=== PATIENT | male | born 1975 | race Caucasian/White ===

== ENCOUNTER 2016-10-26 09:00 | Emergency (ER) | payer SELFPAY ==
[~2016-10-26] VITALS: Ht 175.3 cm; Wt 76.0 kg
[~2016-10-26 09:00] MED LIST: ACET500C5 PO
[2016-10-26 09:03] VITALS: Ht 175.3 cm; Wt 76.0 kg
[2016-10-26] MEDS ORDERED: KETOROLAC 30 MG INJ IV STA (10:05)
[2016-10-26 10:28] LABS: ADD SCAN DIFF NO
[2016-10-26 10:29] LABS: BASOPHILS % 0.6 % (0.0-2.0); EOSINOPHILS # 0.2 10^3/ul (0.0-0.5); EOSINOPHILS % 2.4 % (0.0-7.0); HEMATOCRIT 46.1 % (42.0-52.0); HEMOGLOBIN 16.4 g/dl (14.0-18.0); LYMPHOCYTES # 2.1 10^3/ul (0.8-2.9); LYMPHOCYTES % 30.2 % (15.0-51.0); MEAN CORPUSCULAR HEMOGLOBIN 31.5 pg (29.0-33.0); MEAN CORPUSCULAR HGB CONC 35.6 g/dl (32.0-37.0); MEAN CORPUSCULAR VOLUME 88.5 fl (82.0-101.0); MEAN PLATELET VOLUME 10.6 fl (7.4-10.4); MONOCYTE # 0.6 10^3/ul (0.3-0.9); MONOCYTES % 8.7 % (0.0-11.0); NEUTROPHIL # 3.9 10^3/ul (1.6-7.5); NEUTROPHILS % 57.7 % (39.0-77.0); PLATELET COUNT 264 10^3/UL (140-415); RED BLOOD COUNT 5.21 10^6/ul (4.70-6.10); RED CELL DISTRIBUTION WIDTH 12.3 % (11.5-14.5); WHITE BLOOD COUNT 6.8 10^3/ul (4.8-10.8)
[2016-10-26 10:38] LABS: ADD UMIC NO; URINE BILIRUBIN (Dip) NEGATIVE (NEGATIVE); URINE BLOOD (Dip) NEGATIVE (NEGATIVE); URINE COLOR LT. YELLOW (YELLOW); URINE GLUCOSE (Dip) NEGATIVE (NEGATIVE); URINE KETONES (Dip) NEGATIVE (NEGATIVE); URINE LEUKOCYTE ESTERASE (Dip) NEGATIVE (NEGATIVE); URINE NITRITE (Dip) NEGATIVE (NEGATIVE); URINE TOTAL PROTEIN (Dip) NEGATIVE (NEGATIVE); URINE UROBILINOGEN (Dip) 0.2 E.U./dL (0.1-1.0)
[2016-10-26 10:55] LABS: ALBUMIN 4.6 g/dl (3.3-4.9)
[2016-10-26 10:56] LABS: POTASSIUM 4.3 mmol/L (3.5-5.1)
[2016-10-26 10:58] LABS: ALBUMIN/GLOBULIN RATIO 1.27; BILIRUBIN,INDIRECT 0.5 mg/dl (0-1.1); BILIRUBIN,TOTAL 0.5 mg/dl (0.2-1.3); CREATININE 0.85 mg/dl (0.61-1.24); TOTAL PROTEIN 8.2 g/dl (6.1-8.1)
[2016-10-26 10:59] LABS: CALCIUM 9.4 mg/dl (8.4-10.2)
--- NOTE | 2016-10-26 11:20 | RADRPT ---
PROCEDURE: CT Abdomen and pelvis without contrast. CLINICAL INDICATION: Lower abdominal pain for 1 week TECHNIQUE: CT scan of the abdomen and pelvis with contrast was performed on a multidetector high-r esolution CT scan. . Coronal and sagittal reformatted images were obtained from the axial source i mages. Standard CT scan of the abdomen pelvis without contrast protocols were performed. The total exam CTDI equals 16.03 mGy and the total exam DLP equals 904.79 mGy-cm. One or more of the following dose reduction techniques were used: - Automated exposure control. - Adjustment of the mA and/or kV according to patient size. Use of iterative reconstruction technique. COMPARISON: None. FINDINGS: A right kidney is not visualized and there are no surgical clips along the right renal fossa. Agene sis versus surgical resection. The left kidney is normal in size without evidence of calcified sal l calculi hydronephrosis or intra renal mass. The left ureter is unremarkable. Urinary bladder is unremarkable. There are diverticular changes of the descending and sigmoid colon. There is mild to moderate wall thickening of the proximal sigmoid colon with mild adjacent induration and trace fluid consistent wi th diverticulitis. No evidence of other intra-abdominal free fluid. No evidence of intra-abdominal free air or abscess. The remainder of the colon is unremarkable. The stomach, small bowel and appendix are unremarkable. The liver spleen pancreas gallbladder and adrenal glands are unremarkable. No evidence of biliary d uctal dilation. The aorta is unremarkable. There is a fat containing left inguinal hernia but no herniated bowel or strangulation. There is a 0.7 cm calcified granuloma involving the left lower lobe. The lung base s are otherwise unremarkable. There is mild degenerative changes lower thoracic and lumbar spine. There are no acute osseous findings are osteoblastic/osteolytic lesions. IMPRESSION: 1. Diverticulitis of the proximal sigmoid colon as described above without evidence of intra-abdomi nal free air or abscesses. 2. Unremarkable appendix. 3. Absent right kidney (agenesis versus surgical resection). No evidence of left urinary calcified calculi or obstructive uropathy. 4. Fat containing left inguinal hernia but no herniated bowel or strangulation. RPTAT:AAJJ B Shane, Physician Date Time Electronically viewed and signed by Janina Lynn Physician on 10/26/2016 11:20 BM/
[2016-10-26] MEDS ORDERED: IBUP-1542 PO (11:33)
[2016-10-26] MEDS ORDERED: METR500T PO (11:34)
[2016-10-26] MEDS ORDERED: CIPR500T4 PO (11:34)
--- NOTE | 2016-10-26 11:40 | ERD ---
ER Documentation Chief Complaint Date/Time DATE: 10/26/16 TIME: 11:35 Chief Complaint LOWER ABD PAIN HPI Patient is a 41-year-old male who presents to the emergency department with lower abdominal pain 3 days. Patient states the pain originates in his bilateral flank regions and radiates into his lower abdomen. Patient describes the pain to be constant. Patient denies taking any medication for symptoms. Patient denies any fevers, chills, nausea, vomiting. Patient does report some pain with urination. Patient reports daily soft bowel movements. Patient denies any diarrhea or rectal bleeding. Patient denied any chest pain, shortness of breath, loss of consciousness.. Patient denies any recent travel or antibiotic use. No sick contacts. ROS All systems reviewed and are negative except as per history of present illness. Medications Home Meds Active Scripts Metronidazole* (Flagyl*) 500 Mg Tablet, 500 MG PO TID for 10 Days, TAB Prov:KARINE DENNY-Sunita 10/26/16 Ciprofloxacin Hcl* (Ciprofloxacin Hcl*) 500 Mg Tablet, 500 MG PO BID for 10 Days , TAB Prov:KARINE DENNY-Sunita 10/26/16 Ibuprofen* (Motrin*) 600 Mg Tab, 600 MG PO Q6, #30 TAB Prov:KARINE DENNY-Sunita 10/26/16 Acetaminophen* (Tylophen*) 500 Mg Capsule, 1 CAP PO Q6H Y for PAIN AND OR ELEVATED TEMP, #20 CAP Prov:WILFREDO FLETCHER [employer] TECHNICIAN 06/06/16 Allergies Allergies: Coded Allergies: No Known Allergy (Unverified , 10/26/16) PMhx/Soc Medical and Surgical Hx: pt denies Surgical Hx History of Surgery: No Anesthesia Reaction: No Hx Neurological Disorder: No Hx Respiratory Disorders: No Hx Cardiac Disorders: Yes (HTN) Hx Psychiatric Problems: No Hx Miscellaneous Medical Probl: No Hx Alcohol Use: No Hx Substance Use: No Hx Tobacco Use: No Smoking Status: Never smoker FmHx Family History: No diabetes Physical Exam Vitals Vital Signs Date Time Temp Pulse Resp B/P Pulse Ox O2 Delivery O2 Flow Rate FiO2 10/26/16 09:03 98.1 75 16 124/78 99 Physical Exam GENERAL: Well-developed, well-nourished male. Appears in no acute distress. HEAD: Normocephalic, atraumatic. EYES: Pupils are equally reactive bilaterally. EOMs grossly intact. No conjunctival erythema. ENT: Moist mucous membranes. No uvula deviation. No kissing tonsils. NECK: Supple. No meningismus. Normal range of motion of the neck. LUNG: Clear to auscultation bilaterally. No rhonchi, wheezing, rales or coarse breath sounds. HEART: Regular rate and rhythm. No murmurs, rubs or gallops. ABDOMEN: No scars, ecchymosis or rashes noted. Soft and nondistended. Tender to palpation in the right lower quadrant and left lower quadrant. Positive bowel sounds in all four quadrants. No rebound tenderness, no guarding. (-) McBurney's point tenderness. No CVA tenderness. BACK: No midline tenderness. EXTREMITIES: Equal pulses bilaterally. No peripheral clubbing, cyanosis or edema. No unilateral leg swelling. NEUROLOGIC: Alert and oriented. Moving all four extremities without any difficulty. Normal speech. Steady gait. SKIN: Normal color. Warm and dry. No rashes or lesions. Result Diagram: 10/26/16 1015 10/26/16 1015 Results 24 hrs Laboratory Tests Test 10/26/16 10:15 White Blood Count 6.810^3/ul Red Blood Count 5.2110^6/ul Hemoglobin 16.4g/dl Hematocrit 46.1% Mean Corpuscular Volume 88.5fl Mean Corpuscular Hemoglobin 31.5pg Mean Corpuscular Hemoglobin Concent 35.6g/dl Red Cell Distribution Width 12.3% Platelet Count 20237^3/UL Mean Platelet Volume 10.6fl Neutrophils % 57.7% Lymphocytes % 30.2% Monocytes % 8.7% Eosinophils % 2.4% Basophils % 0.6% Nucleated Red Blood Cells % 0.0/100WBC Neutrophils # 3.910^3/ul Lymphocytes # 2.110^3/ul Monocytes # 0.610^3/ul Eosinophils # 0.210^3/ul Basophils # 0.010^3/ul Nucleated Red Blood Cells # 0.010^3/ul Urine Color LT. YELLOW Urine Clarity CLEAR Urine pH 7.0 Urine Specific Carpenter <=1.005 Urine Ketones NEGATIVE Urine Nitrite NEGATIVE Urine Bilirubin NEGATIVE Urine Urobilinogen 0.2 E.U./dL Urine Leukocyte Esterase NEGATIVE Urine Hemoglobin NEGATIVE Urine Glucose NEGATIVE% Urine Total Protein NEGATIVE Sodium Level 142mmol/L Potassium Level 4.3mmol/L Chloride Level 101mmol/L Carbon Dioxide Level 28mmol/L Anion Gap 17 Blood Urea Nitrogen 11mg/dl Creatinine 0.85mg/dl Glucose Level 91mg/dl Calcium Level 9.4mg/dl Total Bilirubin 0.5mg/dl Direct Bilirubin 0.00mg/dl Indirect Bilirubin 0.5mg/dl Aspartate Amino Transf (AST/SGOT) 29IU/L Alanine Aminotransferase (ALT/SGPT) 36IU/L Alkaline Phosphatase 114IU/L Total Protein 8.2g/dl Albumin 4.6g/dl Globulin 3.60g/dl Albumin/Globulin Ratio 1.27 Lipase 596U/L Current Medications Medications (Trade) Dose Ordered Sig/Nato Route PRN Reason Start Time Stop Time Status Last Admin Dose Admin Ketorolac Tromethamine (Toradol) 30 mg ONCE STAT IV 10/26/16 10:05 10/26/16 10:06 DC 10/26/16 10:19 Procedures/MDM ED COURSE: The patient was stable throughout ED course. I kept the patient and/or family informed of laboratory and diagnostic imaging results throughout the ED course. DIAGNOSTIC IMAGING: Read by radiologist. Patient: SUKHJINDER DONOVAN : 1975 Age: 41 Sex: M MR #: [id number] DOS: 10/26/16 1005 Ordering MD: KARINE DENNY PA-C Location: [facility] Room/Bed: PROCEDURE: CT Abdomen and pelvis without contrast. CLINICAL INDICATION: Lower abdominal pain for 1 week TECHNIQUE: CT scan of the abdomen and pelvis with contrast was performed on a multidetector high-resolution CT scan. . Coronal and sagittal reformatted images were obtained from the axial source images. Standard CT scan of the abdomen pelvis without contrast protocols were performed. The total exam CTDI equals 16.03 mGy and the total exam DLP equals 904.79 mGy- cm. One or more of the following dose reduction techniques were used: - Automated exposure control. - Adjustment of the mA and/or kV according to patient size. Use of iterative reconstruction technique. COMPARISON: None. FINDINGS: A right kidney is not visualized and there are no surgical clips along the right renal fossa. Agenesis versus surgical resection. The left kidney is normal in size without evidence of calcified renal calculi hydronephrosis or intra renal mass. The left ureter is unremarkable. Urinary bladder is unremarkable. There are diverticular changes of the descending and sigmoid colon. There is mild to moderate wall thickening of the proximal sigmoid colon with mild adjacent induration and trace fluid consistent with diverticulitis. No evidence of other intra-abdominal free fluid. No evidence of intra-abdominal free air or abscess. The remainder of the colon is unremarkable. The stomach, small bowel and appendix are unremarkable. The liver spleen pancreas gallbladder and adrenal glands are unremarkable. No evidence of biliary ductal dilation. The aorta is unremarkable. There is a fat containing left inguinal hernia but no herniated bowel or strangulation. There is a 0.7 cm calcified granuloma involving the left lower lobe. The lung bases are otherwise unremarkable. There is mild degenerative changes lower thoracic and lumbar spine. There are no acute osseous findings are osteoblastic/osteolytic lesions. IMPRESSION: 1. Diverticulitis of the proximal sigmoid colon as described above without evidence of intra-abdominal free air or abscesses. 2. Unremarkable appendix. 3. Absent right kidney (agenesis versus surgical resection). No evidence of left urinary calcified calculi or obstructive uropathy. 4. Fat containing left inguinal hernia but no herniated bowel or strangulation. RPTAT:AAJJ Physician Brandi Date Time Electronically viewed and signed by Physician Brandi on 10/26/2016 11:20 BM/ CC: KARINE DENNY PA-C MEDICATIONS GIVEN: Toradol IV Patient tolerated medication well with no adverse reactions. Patient reported improvement in pain. MEDICAL DECISION MAKING: This is a 41-year-old male who presents to the emergency department with bilateral flank pain radiating into his right and lower quadrants 3 days. Vital signs were reviewed. Patient is afebrile. CBC showed no evidence of systemic infection or severe anemia. CMP showed no evidence of electrolyte abnormalities, severe acidosis, alkalosis, renal failure, or liver disease. Lipase was noted to be elevated at 596, however this is not 3 times the normal upper limit. Low suspicion for acute pancreatitis at this time. UA showed no evidence of acute infection or hematuria. CT abdomen pelvis without IV contrast showed Diverticulitis of the proximal sigmoid colon as described above without evidence of intra-abdominal free air or abscesses. Unremarkable appendix Absent right kidney (agenesis versus surgical resection). No evidence of left urinary calcified calculi or obstructive uropathy. Fat containing left inguinal hernia but no herniated bowel or strangulation. At this time, patient's presentation is most consistent with diverticulitis. I have a much lower clinical concern for acute coronary syndrome, AAA, mesenteric ischemia, lower lobe pneumonia, DKA, bowel perforation, bowel obstruction, cholecystitis, choledocholithiasis, ascending cholangitis, pancreatitis, UTI, pyelonephritis, nephrolithiasis, appendicitis, constipation, testicular torsion , epididymitis, urethritis. I discussed the patient's case with my supervising physician Dr. Adler who agrees with the patient's discharge plan. Patient is stable for outpatient management given that he has no white count or denied any fevers.. Patient will be treated with p.o. antibiotics. PRESCRIPTIONS: Ibuprofen, Cipro, Flagyl DISCHARGE: At this time, patient is stable for discharge and outpatient management. She provided with a copy of all imaging and blood work obtained today. I have instructed the patient to follow-up with his/her primary care physician in 1-2 days. Patient was advised to drink plenty of fluids. Patient was advised to follow-up with a GI specialist for further management of his symptoms. I have instructed the patient to promptly return to the ER at any time for any new or worsening symptoms including increased pain, nausea, vomiting, diarrhea, fever, weakness or LOC. The patient and/or family expressed understanding of and agreement with this plan. All questions were answered. Home care instructions were provided. Departure Diagnosis: Primary Impression: Diverticulitis Diverticulitis site: unspecified part of intestinal tract Diverticulitis bleeding: without bleeding Diverticulitis complication: without perforation or abscess Qualified Code: K57.92 - Diverticulitis of intestine without perforation or abscess without bleeding, unspecified part of intestinal tract Condition: Stable Patient Instructions: Diverticulitis Referrals: BRITT MONTES MD,NAYANA BENITEZ,CHAPARRITA MURILLO,SPRING FLANAGAN,CAITLYN Hayes MD [facility] YOU HAVE RECEIVED A MEDICAL SCREENING EXAM AND THE RESULTS INDICATE THAT YOU DO NOT HAVE A CONDITION THAT REQUIRES URGENT TREATMENT IN THE EMERGENCY DEPARTMENT. FURTHER EVALUATION AND TREATMENT OF YOUR CONDITION CAN WAIT UNTIL YOU ARE SEEN IN YOUR DOCTORS OFFICE WITHIN THE NEXT 1-2 DAYS. IT IS YOUR RESPONSIBILITY TO MAKE AN APPOINTMENT FOR FOLOW-UP CARE. IF YOU HAVE A PRIMARY DOCTOR --you should call your primary doctor and schedule an appointment IF YOU DO NOT HAVE A PRIMARY DOCTOR YOU CAN CALL OUR PHYSICIAN REFERRAL HOTLINE AT IF YOU CAN NOT AFFORD TO SEE A PHYSICIAN YOU CAN CHOSE FROM THE FOLLOWING [facility] [address] [facility] [address] [facility]. [facility] [address] [facility] [address] [facility] [address] [facility] [address] [facility] [facility] [address] [facility]. [facility] YOU HAVE RECEIVED A MEDICAL SCREENING EXAM AND THE RESULTS INDICATE THAT YOU DO NOT HAVE A CONDITION THAT REQUIRES URGENT TREATMENT IN THE EMERGENCY DEPARTMENT. FURTHER EVALUATION AND TREATMENT OF YOUR CONDITION CAN WAIT UNTIL YOU ARE SEEN IN YOUR DOCTORS OFFICE WITHIN THE NEXT 1-2 DAYS. IT IS YOUR RESPONSIBILITY TO MAKE AN APPOINTMENT FOR FOLOW-UP CARE. IF YOU HAVE A PRIMARY DOCTOR --you should call your primary doctor and schedule and appointment IF YOU DO NOT HAVE A PRIMARY DOCTOR YOU CAN CALL OUR PHYSICIAN REFERRAL HOTLINE AT . IF YOU CAN NOT AFFORD TO SEE A PHYSICIAN YOU CAN CHOSE FROM THE FOLLOWING [facility] INSTITUTIONS: [facility] [address] [place] [address] [facility] [address] [place] [address] [facility] [address] [place] [address] Additional Instructions: Call your primary care doctor TOMORROW for an appointment during the next 1-2 days.See the doctor sooner or return here if your condition worsens before your appointment time. See referral to GI for further management of symptoms. KARINE DENNY PA-C October 26, 2016 11:40
== END 2016-10-26 11:57 | disposition home or self-care (01) ==
LOC: FTE 09:00
DX: K57.92 Diverticulitis of intestine, part unspecified, without perforation or abscess without bleeding (principal); I10 Essential (primary) hypertension
CPT/HCPCS: 74176; 80053; 81003; 83690; 85025; J1885; 36415; 96374

== ENCOUNTER 2017-01-25 19:36 | Inpatient (IN) | payer MEDICAID ==
[~2017-01-25] VITALS: Ht 175.3 cm; Wt 83.5 kg
[~2017-01-25 19:36] MED LIST changes: +CIPR500T4 PO; +IBUP-1542 PO; +METR500T PO
[2017-01-25 23:41] LABS: INR 0.92; PROTIME 12.4 Sec (12.2-14.2)
[2017-01-25 23:44] LABS: ALANINE AMINOTRANSFERASE 27 IU/L (13-69); ALBUMIN 4.8 g/dl (3.3-4.9); ALBUMIN/GLOBULIN RATIO 1.33; ALKALINE PHOSPHATASE 115 IU/L (42-121); ANION GAP 20 (8-16); ASPARTATE AMINO TRANSFERASE 29 IU/L (15-46); BILIRUBIN,INDIRECT 0.3 mg/dl (0-1.1); BILIRUBIN,TOTAL 0.3 mg/dl (0.2-1.3); BLOOD UREA NITROGEN 15 mg/dl (7-20); CALCIUM 9.8 mg/dl (8.4-10.2); CARBON DIOXIDE 29 mmol/L (21-31); CHLORIDE 99 mmol/L (97-110); CREATININE 0.89 mg/dl (0.61-1.24); GLUCOSE 82 mg/dl (70-220); POTASSIUM 4.4 mmol/L (3.5-5.1); SODIUM 144 mmol/L (135-144); TOTAL PROTEIN 8.4 g/dl (6.1-8.1)
[2017-01-25 23:55] LABS: B-TYPE NATRIURETIC PEPTIDE 21 PG/ML (0-125)
[2017-01-25 23:55] LABS: BASOPHILS % 0.7 % (0.0-2.0); EOSINOPHILS # 0.1 10^3/ul (0.0-0.5); EOSINOPHILS % 2.3 % (0.0-7.0); HEMATOCRIT 43.2 % (42.0-52.0); HEMOGLOBIN 14.9 g/dl (14.0-18.0); LYMPHOCYTES # 2.2 10^3/ul (0.8-2.9); LYMPHOCYTES % 36.1 % (15.0-51.0); MEAN CORPUSCULAR HEMOGLOBIN 30.5 pg (29.0-33.0); MEAN CORPUSCULAR HGB CONC 34.5 g/dl (32.0-37.0); MEAN CORPUSCULAR VOLUME 88.5 fl (82.0-101.0); MEAN PLATELET VOLUME 10.4 fl (7.4-10.4); MONOCYTE # 0.7 10^3/ul (0.3-0.9); MONOCYTES % 12.4 % (0.0-11.0); NEUTROPHIL # 2.9 10^3/ul (1.6-7.5); NEUTROPHILS % 48.2 % (39.0-77.0); PLATELET COUNT 205 10^3/UL (140-415); RED BLOOD COUNT 4.88 10^6/ul (4.70-6.10); RED CELL DISTRIBUTION WIDTH 12.7 % (11.5-14.5)
[2017-01-26] VITALS (10 sets, daily range): BP systolic 98–143; BP diastolic 58–80; PULSE 40–68; RESP 18–19; TEMP 98.6; Ht 175.3 cm; Wt 83.5 kg
[2017-01-26 00:10] LABS: TROPONIN-I < 0.012 ng/ml (0.00-0.12)
--- NOTE | 2017-01-26 00:14 | RADRPT ---
PROCEDURE: Chest. CLINICAL INDICATION: Chest pain. TECHNIQUE: Single frontal view of the chest was obtained. COMPARISON: None. FINDINGS: The cardiac silhouette is within normal limits. The aortic arch is unremarkable. There is no focal consolidation, vascular congestion or pleural effusion. There is no pneumothorax. IMPRESSION: No evidence for active cardiopulmonary disease. .Dennis Gonzales MD, MD Date Time Electronically viewed and signed by .Dennis Gonzales MD, on 01/26/2017 00:13 .T/
[2017-01-26] MEDS ORDERED: NACL 0.9% 3 ML SYG IV SCH (05:30)
[2017-01-26] MEDS ORDERED: ONDANSETRON 4 MG INJ IV PRN (05:30)
[2017-01-26] MEDS ORDERED: morphine 2 MG INJ IV PRN (05:30)
[2017-01-26] MEDS ORDERED: ACETAMINOPHEN 325 MG TAB PO PRN (05:30)
[2017-01-26] MEDS ORDERED: PANTOPRAZOLE 40 MG INJ IV SCH (06:00)
[2017-01-26 06:30] LABS: CREATINE KINASE 66 IU/L (23-200)
[2017-01-26 06:40] LABS: CK-MB 1.29 ng/ml (0.0-2.4); TROPONIN-I < 0.012 ng/ml (0.00-0.12)
[2017-01-26 07:38] LABS: CHOL/HDL RATIO 5.5 RATIO; MAGNESIUM 2.4 mg/dl (1.7-2.5)
[2017-01-26 08:08] LABS: THYROID STIMULATING HORMONE 4.88 MIU/L (0.465-4.680)
[2017-01-26] MEDS ORDERED: LISINOPRIL 5 MG TAB PO ONE (09:30)
--- NOTE | 2017-01-26 09:32 | HP ---
Date/Time of Note Date/Time of Note DATE: 01/26/17 TIME: 09:32 Assessment/Plan VTE Prophylaxis VTE Prophylaxis Intervention: LMWH Lines/Catheters Urinary Cath still in place: No Assessment/Plan Assessment/Plan This is a 42-year-old male, who presented to the emergency room for evaluation of ongoing chest pain. 1. Chest pain, rule out acute coronary syndrome versus other -Admit as inpatient, serial troponin, serial EKG and 2D echocardiogram -Aspirin, nitroglycerin sublingual- PRN and morphine PRN -Obtain free T4 and TSH is mildly elevated 2. Asymptomatic bradycardia, possibly medication induced as patient states that he takes antihypertensive at home which he does not remember the name. -Patient will be abstain from any beta blockers are not blocking agents for now. -Cardiology consult. . 3. Essential hypertension, controlled -Start low-dose UCHE inhibitor as patient is not a candidate for beta-emile or AV bryanna blocking agents secondary to bradycardia as renal function stable. 4. Triglyceridemia, MILD within acceptable range., - for now, we will advise patient with therapeutic lifestyle changes to start with and repeat lipid panel in 4-6 weeks for indication of statin therapy at that time. DVT prophylaxis: Lovenox Plan: Patient will be observed in the telemetry unit. He will be started on a cardiac diet. Will continue to monitor serial troponin and follow-up with echocardiogram findings. Patient will be continued on aspirin and antihypertensive. Follow-up with cardiology recommendation. If ACS is ruled out, likely patient to be discharged home tomorrow once cleared from sediment remediation consultant. Approximately 60 minutes was spent on this history and physical. Case discussed with Dr. Salguero. HPI/ROS Admit Date/Time Admit Date/Time Jan 26, 2017 at 07:46 Hx of Present Illness This is a 42-year-old male with a past medical history of hypertension , who presented to the emergency room with complaints of 2 day duration of chest pain mostly left-sided without any radiation. Patient denied any SOB, PND , headache, dizziness, loss of consciousness, bowel or bladder irregularities, abdominal pain, nausea, vomiting, or neurological deficit. Patient denied any fever, chills, diarrhea, constipation, hemoptysis or cough. Initial labs unremarkable except for mildly elevated TSH and triglycerides. Troponin negative. Chest x-ray negative for any acute cardiopulmonary process. Patient was noted to have bradycardia at a rate of 44-59 upon presentation without any ST or T-wave changes. Patient was admitted for further evaluation. I cannot locate any record of medications that was given in the emergency room. Please note that [employer] service #[id number] was used for this H&P. ROS See HPI PMH/Family/Social Past Medical History See HPI Past Surgical History See HPI Social History Denied alcohol, smoking or illicit drug use history. Smoking Status: Never smoker Exam/Review of Systems Vital Signs Vitals Vital Signs Date Time Temp Pulse Resp B/P Pulse Ox O2 Delivery O2 Flow Rate FiO2 01/26/17 08:11 58 01/26/17 08:07 98.6 18 143/80 98 01/26/17 07:18 Room Air Exam Exam General: Well developed,adequately built, not in any acute distress . HEENT: Normocephalic, Atraumatic, No laceration or hematoma; Eyes: PEERL, Conjunctiva clear, Anicteric sclera Neck: Supple without any lymphadenopathy, nontender, no JVD, no carotid bruits, trachea midline, no thyromegaly Cardiac: S1, S2 auscultated, regular rhythm and rate, no mumurs or gallop Pulmonary: Normal respiratory effort. Chest clear to auscultation bilaterally, no adventitious breath sounds GI: Abdomen normal to inspection. Soft, non tender, non- distended, no masses, no rebound tenderness or guarding. Bowel sounds active on all four quadrants Genitourinary: Deferred Extremities: No cyanosis, clubbing, or edema. Pulses [2+] bilaterally. Full ROM on all four extremities. No focal weakness appreciated. Neurologic: Alert to person, place, time, and situation. Affect appropriate, intact sensation. Skin: Clean,dry, and intact. No ecchymosis, no rashes, or lesions Labs Result Diagram: 01/25/17 2330 01/25/17 4215 Medications Medications Current Medications Ondansetron HCl (Zofran Inj) 4 mg Q6H PRN IV NAUSEA AND/OR VOMITING; Start 01/26 at 05:30 Acetaminophen (Tylenol Tab) 650 mg Q6H PRN PO PAIN LEVEL 1-3 OR FEVER; Start at 05:30 Morphine Sulfate (morphine) 2 mg Q4H PRN IV PAIN LEVEL 7-10; Start 01/26/17 at 05:30 Pantoprazole (Protonix Iv) 40 mg DAILY@06 IV Last administered on 01/26/17t 06: 03; Admin Dose 40 MG; Start 01/26/17 at 06:00 Lisinopril (Zestril) 5 mg DAILY PO ; Start 01/27/17 at 09:00; Status UNV Lisinopril (Zestril) 5 mg ONCE ONCE PO ; Start 01/26/17 at 09:30; Stop 01/26/17 at 09:31; Status UNV PATRICIA ARCHIBALD V. SHINGLES ROOFER Jan 26, 2017 09:32
[2017-01-26] MEDS ORDERED: NITROGLYCERIN (SL) 0.4 MG TAB SL PRN (10:30)
--- NOTE | 2017-01-26 10:30 | RADRPT ---
Echocardiogram Report Patient Name: SUKHJINDER DONOVAN Gender: Male Date: 1975 Study Date: 26-Jan-2017 Clerical Assistant: Raya Cortés [facility] Location: 5552 Ref. Physician: DARREN FAY Quality: Good Procedures: Transthoracic echocardiogram with complete 2D, M-Mode, and doppler examination. Indications: Chest Pain. 2D/M Mode Doppler Measurement Value Normal Ranges Measurement Value Normal Ranges LVIDd 2D 4.3 3.5 - 5.6 cm AV Peak Lee 1.3 m/sec LVIDs 2D 2.9 2.1 - 4.1 cm AV Peak PG 6.5 mmHg LVPWd 2D 1.3 0.6 - 1.1 cm LVOT Peak Lee 0.9 m/sec IVSd 2D 1.4 0.6 - 1.1 cm LVOT Peak PG 3.3 mmHg AoR Diam 2D 2.9 2.0 - 3.7 cm MV E Peak Lee 0.6 m/sec EDV 2D 83.9 cm3 MV A Peak Lee 0.4 m/sec ESV 2D 25.3 cm3 MV E/A 1.5 LA Dimen 2D 3.8 2.3 - 4.0 cm MV Decel Time 367 msec MV Decel Randolph 2 MV E/A 1.5 TR Peak Lee 2.2 m/sec TR Peak PG 19.4 mmHg RVSP 29.0 mmHg Findings Left Ventricle: Normal left ventricular systolic function. Normal left ventricular cavity size. Mild concentric left ventricular hypertrophy. Ejection fraction is visually estimated at 65 %. Tissue Doppler/Mitral Doppler indices are within normal limits. Right Ventricle: Normal right ventricular size. Normal right ventricular systolic function. Left Atrium: The left atrium is normal in size. Right Atrium: The right atrium is normal in size. Mitral Valve: Normal appearance and function of the mitral valve with trace physiologic regurgitation. Aortic Valve: Normal appearance of the aortic valve. No significant aortic stenosis or insufficiency. Tricuspid Valve: Normal appearance of the tricuspid valve. Estimated peak PA systolic pressure 29 mmHg. There is trace tricuspid regurgitation. Pulmonic Valve: Normal pulmonic valve appearance. Pericardium: Normal pericardium with no significant pericardial effusion. Aorta: Normal aortic root. IVC: Normal size and normal respiratory collapse consistent with normal right atrial pressure. Conclusions 1.Normal left ventricular systolic function. Normal left ventricular cavity size. Mild concentric left ventricular hypertrophy. Ejection fraction is visually estimated at 65 %. Tissue Doppler/Mitral Doppler indices are within normal limits. 2.Normal appearance and function of the mitral valve with trace physiologic regurgitation. 3.Normal appearance of the aortic valve. No significant aortic stenosis or insufficiency. 4.Normal appearance of the tricuspid valve. Estimated peak PA systolic pressure 29 mmHg. There is trace tricuspid regurgitation. Electronically Signed By: Vaibhav Martinez 26-Jan-2017 10:29:58 -0700 Patient Name: SUKHJINDER DONOVAN Study Date: 26-Jan-2017 [id number]
[2017-01-26] MEDS: ASPIRIN 81 MG TAB PO SCH (11:30)
[2017-01-26 12:39] LABS: CREATINE KINASE 65 IU/L (23-200)
[2017-01-26 12:48] LABS: CK-MB 1.07 ng/ml (0.0-2.4); TROPONIN-I < 0.012 ng/ml (0.00-0.12)
--- NOTE | 2017-01-26 16:10 | CONS ---
Date/Time of Note Date/Time of Note DATE: 01/26/17 TIME: 16:09 Assessment/Plan Assessment/Plan Additional Assessment/Plan 42 yo with HTN - here with CP and palpitions - will monitor r/o SVT - inpt vs outpt stress test to consider. # [id number] Full note Dictated, Tnx Consultation Date/Type/Reason Admit Date/Time Jan 26, 2017 at 07:46 Initial Consult Date Exam/Review of Systems Vital Signs Vitals Vital Signs Date Time Temp Pulse Resp B/P Pulse Ox O2 Delivery O2 Flow Rate FiO2 01/26/17 12:14 68 01/26/17 11:25 98.6 18 115/77 96 01/26/17 07:18 Room Air Results Result Diagram: 01/25/17 2330 01/25/17 2245 Results 24 hrs Laboratory Tests Test 01/25/17 22:45 01/25/17 23:30 01/26/17 05:29 01/26/17 11:39 Prothrombin Time 12.4 Prothrombin Time Ratio 1.0 INR International Normalized Ratio 0.92 Activated Partial Thromboplast Time 20.0 L Sodium Level 144 Potassium Level 4.4 Chloride Level 99 Carbon Dioxide Level 29 Anion Gap 20 H Blood Urea Nitrogen 15 Creatinine 0.89 Glucose Level 82 Calcium Level 9.8 Total Bilirubin 0.3 Direct Bilirubin 0.00 Indirect Bilirubin 0.3 Aspartate Amino Transf (AST/SGOT) 29 Alanine Aminotransferase (ALT/SGPT) 27 Alkaline Phosphatase 115 Troponin I < 0.012 < 0.012 < 0.012 B-Type Natriuretic Peptide 21 Total Protein 8.4 H Albumin 4.8 Globulin 3.60 H Albumin/Globulin Ratio 1.33 White Blood Count 6.0 Red Blood Count 4.88 Hemoglobin 14.9 Hematocrit 43.2 Mean Corpuscular Volume 88.5 Mean Corpuscular Hemoglobin 30.5 Mean Corpuscular Hemoglobin Concent 34.5 Red Cell Distribution Width 12.7 Platelet Count 205 # Mean Platelet Volume 10.4 Neutrophils % 48.2 Lymphocytes % 36.1 Monocytes % 12.4 H Eosinophils % 2.3 Basophils % 0.7 Nucleated Red Blood Cells % 0.0 Neutrophils # 2.9 Lymphocytes # 2.2 Monocytes # 0.7 Eosinophils # 0.1 Basophils # 0.0 Nucleated Red Blood Cells # 0.0 Magnesium Level 2.4 Creatine Kinase 66 65 Creatine Kinase Index 2.0 1.6 Creatinine Kinase MB (Mass) 1.29 1.07 Triglycerides Level 179 H Cholesterol Level 189 LDL Cholesterol, Calculated 119 HDL Cholesterol 34 Cholesterol/HDL Ratio 5.5 Vitamin B12 Level 317 Vitamin D 1,25-Dihydroxy 31.0 Thyroid Stimulating Hormone (TSH) 4.880 H Free Thyroxine 1.41 Hemoglobin A1c 5.2 Medications Medications Current Medications Ondansetron HCl (Zofran Inj) 4 mg Q6H PRN IV NAUSEA AND/OR VOMITING; Start 01/26 at 05:30 Acetaminophen (Tylenol Tab) 650 mg Q6H PRN PO PAIN LEVEL 1-3 OR FEVER; Start at 05:30 Morphine Sulfate (morphine) 2 mg Q4H PRN IV PAIN LEVEL 7-10; Start 01/26/17 at 05:30 Lisinopril (Zestril) 5 mg DAILY PO ; Start 01/27/17 at 09:00 Aspirin (Aspirin) 81 mg DAILY PO ; Start 01/26/17 at 11:30 Nitroglycerin (Nitroglycerin (Sl Tab) 0.4 Mg) 1 tab Q5M PRN SL ANGINA; Start at 10:30 EDA BLACKMAN MD Jan 26, 2017 16:10
[2017-01-27] VITALS (13 sets, daily range): BP systolic 95–118; BP diastolic 57–76; PULSE 36–78; RESP 18–19
[2017-01-27 07:54] LABS: BASOPHILS % 0.5 % (0.0-2.0); EOSINOPHILS # 0.1 10^3/ul (0.0-0.5); EOSINOPHILS % 2.5 % (0.0-7.0); HEMATOCRIT 47.1 % (42.0-52.0); HEMOGLOBIN 16.6 g/dl (14.0-18.0); LYMPHOCYTES # 1.8 10^3/ul (0.8-2.9); LYMPHOCYTES % 32.2 % (15.0-51.0); MEAN CORPUSCULAR HEMOGLOBIN 31.4 pg (29.0-33.0); MEAN CORPUSCULAR HGB CONC 35.2 g/dl (32.0-37.0); MEAN PLATELET VOLUME 10.6 fl (7.4-10.4); MONOCYTE # 0.7 10^3/ul (0.3-0.9); MONOCYTES % 13.2 % (0.0-11.0); NEUTROPHIL # 2.9 10^3/ul (1.6-7.5); NEUTROPHILS % 51.4 % (39.0-77.0); PLATELET COUNT 215 10^3/UL (140-415); RED BLOOD COUNT 5.29 10^6/ul (4.70-6.10); RED CELL DISTRIBUTION WIDTH 12.5 % (11.5-14.5); WHITE BLOOD COUNT 5.6 10^3/ul (4.8-10.8)
[2017-01-27 08:20] LABS: ALBUMIN 4.4 g/dl (3.3-4.9); ALBUMIN/GLOBULIN RATIO 1.33; BILIRUBIN,INDIRECT 0.7 mg/dl (0-1.1); BILIRUBIN,TOTAL 0.7 mg/dl (0.2-1.3); CALCIUM 9.4 mg/dl (8.4-10.2); CREATININE 1.04 mg/dl (0.61-1.24); POTASSIUM 4.4 mmol/L (3.5-5.1); TOTAL PROTEIN 7.7 g/dl (6.1-8.1)
--- NOTE | 2017-01-27 09:39 | CONS ---
DATE OF ADMISSION: 01/26/2017 DATE OF CONSULTATION: 01/26/2017 CARDIOLOGY CONSULTATION REFERRING PHYSICIAN: Medardo Duckworth MD REASON FOR CONSULTATION: Chest pain, palpitations. HISTORY OF PRESENT ILLNESS: Mr. Kvng Espinosa is a 42- year-old gentleman with severe hypertension who comes to the hospital now for evaluation of palpitations and bradycardia. The patient said he had intermittent palpitations for the last 2 days but now his heart rate is better controlled. He is asymptomatic. He did not rule in for acute ischemia. I think at this point it would be reasonable to monitor the patient. He was initiated on an UCHE inhibitor per primary team. No beta blockers are noted. We will restratify the patient with a stress test and monitor for possible tachy-ang arrhythmia. PAST MEDICAL HISTORY: Hypertension. ALLERGIES: NO KNOWN DRUG ALLERGIES. SOCIAL HISTORY: Does not smoke. Does not drink. Does not do any illicit drugs. FAMILY HISTORY: Negative for sudden cardiac or premature coronary artery disease. MEDICATION: 1. Ondansetron. 2. Tylenol. 3. Morphine sulfate. 4. Pantoprazole. 5. Lisinopril 5 mg p.o. once a day. REVIEW OF SYSTEMS: CONSTITUTIONAL: No fevers, no chills, palpitations, weight changes. CARDIOVASCULAR: No chest pain reported now. RESPIRATORY: No shortness of breath. GASTROINTESTINAL: No nausea, vomiting. GENITOURINARY: No dysuria, hematuria. NEUROLOGIC: No focal deficits. HEMATOLOGIC: PSYCHIATRIC: No known history of psychiatric illness. PHYSICAL EXAMINATION: VITAL SIGNS: Temperature is 98.6, heart rate 68 now, blood pressure 116/77. GENERAL: A thin gentleman in no acute distress. Alert and oriented x3. HEENT: Head is normocephalic, atraumatic. intact. NECK: Supple. JVD is 6-7 cm. There is no lymphadenopathy. No cervical adenopathy. HEART: Regular. murmur at the apex. PMI is nondisplaced. There is no S3. ABDOMEN: Distended. Bowel sounds are present. There is no hepatosplenomegaly. EXTREMITIES: Without cyanosis, clubbing or edema. NEUROLOGIC: He is able to move his extremities. LABORATORY: White blood cell count is 6.0, hemoglobin is 11.9. His troponins are negative at 0.012. I was not able to get an EKG on the chart and we are going to try to followup with Cardiology ASSESSMENT AND PLAN: 1. Chest pain. The patient was reported to have chest pain, does not report any chest pain now. He has coronary artery disease, will restratify the patient with a stress test tomorrow if possible. 2. Hypertension. Blood pressure well controlled now. The patient appears to tolerate UCHE inhibitor well. 3. Palpitations. Will continue to monitor, to rule out tachy- ang arrhythmia. 4. Dyslipidemia. Will check fasting lipids and see if any treatment is indicated. I would like to thank Dr. Duckworth for referring this patient for my evaluation. Dictated By: Lamont Solis MD /rosalio/carol /Document#: [id number]
[2017-01-27] MEDS: LISINOPRIL 5 MG TAB PO SCH (09:54)
[2017-01-27] MEDS: ASPIRIN 81 MG TAB PO SCH (09:54)
--- NOTE | 2017-01-27 13:58 | PN ---
Date/Time of Note Date/Time of Note DATE: 01/27/17 TIME: 13:54 Assessment/Plan VTE Prophylaxis VTE Prophylaxis Intervention: LMWH Lines/Catheters [facility] Urinary Cath still in place: No Assessment/Plan Chief Complaint/Hosp Course 1. Chest pain, rule out acute coronary syndrome versus other. Serial troponin negative,EKG without ST/T changes. echo with preserved EF -For stress test today with cards team -Continue Aspirin, nitroglycerin sublingual- PRN and morphine PRN 2. Asymptomatic bradycardia, possibly medication induced as patient states that he takes antihypertensive at home which he does not remember the name. -Patient will be abstain from any beta blockers are not blocking agents for now. -Cardiology for further recs . 3. Essential hypertension, controlled -On UCHE inhibitor 4. Triglyceridemia, MILD within acceptable range., - Advised therapeutic lifestyle changes to start with and repeat lipid panel in 4-6 weeks for indication of statin therapy at that time. DVT prophylaxis: Lovenox Plan:F/u with stress chari nd [place] home once cleared from cards standpoint. Case discussed with Dr. Salguero. Problems: Subjective 24 Hr Interval Summary Free Text/Dictation No reported chest pain,palpitation or other distress. HR remains at 50's. Exam/Review of Systems Vital Signs Vitals Vital Signs Date Time Temp Pulse Resp B/P Pulse Ox O2 Delivery O2 Flow Rate FiO2 01/27/17 12:35 78 01/27/17 12:00 98.2 18 95/57 96 01/26/17 07:18 Room Air Intake and Output 01/26/17 01/26/17 01/27/17 15:00 23:00 07:00 Intake Total 960 ml 750 ml Output Total 2 ml Balance 958 ml 750 ml Exam General: Well developed,adequately built, not in any acute distress . HEENT: Normocephalic, Atraumatic, No laceration or hematoma; Eyes: PEERL, Conjunctiva clear, Anicteric sclera Neck: Supple without any lymphadenopathy, nontender, no JVD, no carotid bruits, trachea midline, no thyromegaly Cardiac: S1, S2 auscultated, regular rhythm and rate, no mumurs or gallop Pulmonary: Normal respiratory effort. Chest clear to auscultation bilaterally, no adventitious breath sounds GI: Abdomen normal to inspection. Soft, non tender, non- distended, no masses, no rebound tenderness or guarding. Bowel sounds active on all four quadrants Genitourinary: Deferred Extremities: No cyanosis, clubbing, or edema. Pulses [2+] bilaterally. Full ROM on all four extremities. No focal weakness appreciated. Neurologic: Alert to person, place, time, and situation. Affect appropriate, intact sensation. Skin: Clean,dry, and intact. No ecchymosis, no rashes, or lesions Results Result Diagram: 01/27/17 0734 01/27/17 0734 Results 24 hrs Laboratory Tests Test 01/27/17 07:34 White Blood Count 5.6 Red Blood Count 5.29 Hemoglobin 16.6 Hematocrit 47.1 Mean Corpuscular Volume 89.0 Mean Corpuscular Hemoglobin 31.4 Mean Corpuscular Hemoglobin Concent 35.2 Red Cell Distribution Width 12.5 Platelet Count 215 Mean Platelet Volume 10.6 H Neutrophils % 51.4 Lymphocytes % 32.2 Monocytes % 13.2 H Eosinophils % 2.5 Basophils % 0.5 Nucleated Red Blood Cells % 0.0 Neutrophils # 2.9 Lymphocytes # 1.8 Monocytes # 0.7 Eosinophils # 0.1 Basophils # 0.0 Nucleated Red Blood Cells # 0.0 Sodium Level 142 Potassium Level 4.4 Chloride Level 100 Carbon Dioxide Level 28 Anion Gap 18 H Blood Urea Nitrogen 20 Creatinine 1.04 Glucose Level 87 Calcium Level 9.4 Total Bilirubin 0.7 Direct Bilirubin 0.00 Indirect Bilirubin 0.7 Aspartate Amino Transf (AST/SGOT) 25 Alanine Aminotransferase (ALT/SGPT) 36 Alkaline Phosphatase 102 Total Protein 7.7 Albumin 4.4 Globulin 3.30 H Albumin/Globulin Ratio 1.33 Medications Medications Current Medications Ondansetron HCl (Zofran Inj) 4 mg Q6H PRN IV NAUSEA AND/OR VOMITING; Start 01/26 at 05:30 Acetaminophen (Tylenol Tab) 650 mg Q6H PRN PO PAIN LEVEL 1-3 OR FEVER; Start at 05:30 Morphine Sulfate (morphine) 2 mg Q4H PRN IV PAIN LEVEL 7-10 Last administered on 01/26/17 20:07; Admin Dose 2 MG; Start 01/26/17 at 05:30 Lisinopril (Zestril) 5 mg DAILY PO Last administered on 01/27/17 09:54; Admin Dose 5 MG; Start 01/27/17 at 09:00 Aspirin (Aspirin) 81 mg DAILY PO Last administered on 01/27/17 09:54; Admin Dose 81 MG; Start 01/26/17 at 11:30 Nitroglycerin (Nitroglycerin (Sl Tab) 0.4 Mg) 1 tab Q5M PRN SL ANGINA; Start at 10:30 PATRICIA ARCHIBALD NP Jan 27, 2017 13:58
[2017-01-27] MEDS ORDERED: REGADENOSON 0.4 MG/5 ML SYG ONE (14:00)
--- NOTE | 2017-01-27 14:24 | CONS ---
Date/Time of Note Date/Time of Note DATE: 01/27/17 TIME: 14:21 Assessment/Plan Assessment/Plan Chief Complaint/Hosp Course IMP: 1.Chest pain-negative trop x 3 2.HTN 3.Bradycardia to 50's mainly 4,.Dyslipidemia Recc: -Tele -continue asa -Continue zestril -Lexiscan stress test today Problems: Consultation Date/Type/Reason Admit Date/Time Jan 26, 2017 at 07:46 Initial Consult Date 01/26/2017 Type of Consultation: cardiology Reason for Consultation chest pain Referring Provider: MOSES FAGAN Exam/Review of Systems Vital Signs Vitals Vital Signs Date Time Temp Pulse Resp B/P Pulse Ox O2 Delivery O2 Flow Rate FiO2 01/27/17 12:35 78 01/27/17 12:00 98.2 18 95/57 96 01/26/17 07:18 Room Air Intake and Output 01/26/17 01/26/17 01/27/17 15:00 23:00 07:00 Intake Total 960 ml 750 ml Output Total 2 ml Balance 958 ml 750 ml Exam Review of Systems: CONSTITUTIONAL: No fevers, chills. PULMONARY: No sob CARDIOVASCULAR: No chest pain/palpitations GASTROINTESTINAL: No nausea/vomiting. GENITOURINARY: No hematuria/dysuria. MUSCULOSKELETAL: No myagias/arthalgias. PSYCHIATRIC: The patient denies depression. NEUROLOGIC: No weakness Constitutional: alert Psych: no complaints Head: normocephalic ENMT: mucosa pink and moist Neck: jvd (8-9 cm water), supple Respiratory: diminished breath sounds (at bases/B) Cardiovascular: regular rate and rhythm Gastrointestinal: non-tender, soft Musculoskeletal: muscle tone (normal) Extremities: edema (none) Results Result Diagram: 01/27/17 0734 01/27/17 0734 Results 24 hrs Laboratory Tests Test 01/27/17 07:34 White Blood Count 5.6 Red Blood Count 5.29 Hemoglobin 16.6 Hematocrit 47.1 Mean Corpuscular Volume 89.0 Mean Corpuscular Hemoglobin 31.4 Mean Corpuscular Hemoglobin Concent 35.2 Red Cell Distribution Width 12.5 Platelet Count 215 Mean Platelet Volume 10.6 H Neutrophils % 51.4 Lymphocytes % 32.2 Monocytes % 13.2 H Eosinophils % 2.5 Basophils % 0.5 Nucleated Red Blood Cells % 0.0 Neutrophils # 2.9 Lymphocytes # 1.8 Monocytes # 0.7 Eosinophils # 0.1 Basophils # 0.0 Nucleated Red Blood Cells # 0.0 Sodium Level 142 Potassium Level 4.4 Chloride Level 100 Carbon Dioxide Level 28 Anion Gap 18 H Blood Urea Nitrogen 20 Creatinine 1.04 Glucose Level 87 Calcium Level 9.4 Total Bilirubin 0.7 Direct Bilirubin 0.00 Indirect Bilirubin 0.7 Aspartate Amino Transf (AST/SGOT) 25 Alanine Aminotransferase (ALT/SGPT) 36 Alkaline Phosphatase 102 Total Protein 7.7 Albumin 4.4 Globulin 3.30 H Albumin/Globulin Ratio 1.33 Medications Medications Current Medications Ondansetron HCl (Zofran Inj) 4 mg Q6H PRN IV NAUSEA AND/OR VOMITING; Start 01/26 at 05:30 Acetaminophen (Tylenol Tab) 650 mg Q6H PRN PO PAIN LEVEL 1-3 OR FEVER; Start at 05:30 Morphine Sulfate (morphine) 2 mg Q4H PRN IV PAIN LEVEL 7-10 Last administered on 01/26/17 20:07; Admin Dose 2 MG; Start 01/26/17 at 05:30 Lisinopril (Zestril) 5 mg DAILY PO Last administered on 01/27/17 09:54; Admin Dose 5 MG; Start 01/27/17 at 09:00 Aspirin (Aspirin) 81 mg DAILY PO Last administered on 01/27/17 09:54; Admin Dose 81 MG; Start 01/26/17 at 11:30 Nitroglycerin (Nitroglycerin (Sl Tab) 0.4 Mg) 1 tab Q5M PRN SL ANGINA; Start at 10:30 GILLIAN MOSQUERA Jan 27, 2017 14:24
--- NOTE | 2017-01-27 16:19 | RADRPT ---
PROCEDURE: Lexiscan myocardial perfusion study CLINICAL INDICATION: 42 -year-old patient complaining of chest pain. TECHNIQUE: Lexiscan 0.4 mg intravenously separate acquisition gated myocardial perfusion SPECT usi ng Tc 99m Myoview 30.8 mCi intravenously at stress and Tc-99m Myoview, 10.1 mCi intravenously at res t was performed using the rest/stress sequence. Poststress Myoview SPECT images were obtained in th e supine position. COMPARISON: No prior studies. FINDINGS: Perfusion images reveal a small to moderate size mild to moderate in degree nonreversible perfusion abnormality in the inferior wall. There is no evidence of stress-induced ischemia. Lexiscan post stress gated SPECT images demonstrate no wall motion abnormalities. IMPRESSION: 1. The type and distribution of the scintigraphic abnormalities are most consistent with a small to moderate-sized nonreversible perfusion defect involving the inferior wall. 2. No wall motion abnormalities. 3. The left ventricle ejection fraction at stress is 60%. A call report was made to Dr. Hawkins at 04:11 p.m. on January 27, 2017. RPTAT: HH .Marti Ashton MD, Date Time Electronically viewed and signed by .Marti Ashton MD, MD on 01/27/2017 16:18 .L/
--- NOTE | 2017-01-27 20:51 | CARRPT ---
DATE OF PROCEDURE: 01/27/2017 PROCEDURE PERFORMED: Lexiscan Cardiolite stress test. REASON FOR STRESS TEST: Assess for ischemia. BASELINE VITAL SIGNS: Pulse 60, blood pressure of 111/71. ELECTROCARDIOGRAM: Electrocardiogram was normal sinus rhythm, rate of 60, normal axis, normal intervals, S wave, and flat in lead aVL. PROCEDURE: The patient had a standard Lexiscan, infusion for 10 seconds followed by radiotracer. Patient's test was stopped after completion of protocol. Maximal blood pressure test 104/57, maximum heart rate during the test 92. ECG CHANGES: ECG did not develop any new Lexiscan induced ST or T changes from baseline. No documented PVCs. SYMPTOMS: Patient had no complaints of chest pain or shortness of breath during stress testing. IMPRESSION: 1. No Lexiscan induced ST or T changes from baseline to diagnose for cardiac ischemia. 2. No complaints of chest pain or shortness of breath during stress testing. 3. No documented premature ventricular contractions (PVCs) during stress testing. 4. Nuclear images to follow. Dictated By: Ramya Carr /fnt/ /Document#: [id number] ; Dr. Curiel, Hospitalist Service
[2017-01-27] MEDS: GUAIFENESIN LA 600 MG TABSR PO SCH (22:19)
[2017-01-28] VITALS (7 sets, daily range): BP systolic 107–139; BP diastolic 59–76; PULSE 44–58; RESP 19
[2017-01-28] MEDS: ASPIRIN 81 MG TAB PO SCH (08:58)
[2017-01-28] MEDS: LISINOPRIL 5 MG TAB PO SCH (08:58)
[2017-01-28] MEDS: GUAIFENESIN LA 600 MG TABSR PO SCH (08:58)
--- NOTE | 2017-01-28 10:48 | PDOCDIS ---
Discharge Instructions CONDITION Patient Condition: Stable HOME CARE INSTRUCTIONS: Special Diet: Cardiac diet FOLLOW UP/APPOINTMENTS Follow-up Plan 1.Follow up with primary care physician in 1 week If you don't have one please let someone know, we can give you resources that may help you pick one. You may also call your insurance company to assign one to you. Review your medication list with your nurse before leaving and if you need new prescriptions please let your nurse know. I may have made changes to your home medications or given you new prescriptions, please let your primary doctor know as well. Stay compliant with your medications and report any side effects to your PCP or pharmacist. Return to the ER if you have any concerns and cannot reach your doctors or call your insurance company, they usually have a nurse that can help you. 2. Call 911 or go to the nearest emergency room if experiencing loss of consciousness, dizziness, chest pain, shortness of breath, vomiting/abdominal pain, speech difficulties, motor weakness or any unusual symptoms. PATRICIA ARCHIBALD NP Jan 28, 2017 10:48
[2017-01-28] MEDS ORDERED: LISI-313 PO (10:49)
--- NOTE | 2017-01-28 11:00 | DS ---
Date/Time of Note Date/Time of Note DATE: 01/28/17 TIME: 10:57 Discharge Summary Admission/Discharge Info Admit Date/Time Jan 26, 2017 at 07:46 Discharge Date/Time Discharge Diagnosis 1.Chest pain, likely musculoskeletal. Resolved. ACS ruled out 2.HTN 3. Asymptomatic bradycardia. Stable. 4. Mild triglyceridemia. Needs repeat labs in 4 weeks. Patient Condition: Stable Consults Dr. Hawkins, cardiology Procedures 01/26/2017. 2D echocardiogram Conclusions 1. Normal left ventricular systolic function. Normal left ventricular cavity size. Mild concentric left ventricular hypertrophy. Ejection fraction is visually estimated at 65 %. Tissue Doppler/Mitral Doppler indices are within normal limits. 2. Normal appearance and function of the mitral valve with trace physiologic regurgitation. 3. Normal appearance of the aortic valve. No significant aortic stenosis or insufficiency. 4. Normal appearance of the tricuspid valve. Estimated peak PA systolic pressure 29 mmHg. There is trace tricuspid regurgitation. 01/27/2017. Lexiscan stress test IMPRESSION: 1. No Lexiscan induced ST or T changes from baseline to diagnose for cardiac ischemia. 2. No complaints of chest pain or shortness of breath during stress testing. 3. No documented premature ventricular contractions (PVCs) during stress testing. Hospital Course This is a 42-year-old male with a past medical history of hypertension , who presented to the emergency room for evaluation of chest pain associated with palpitation for a 2 day duration. Patient did not have any other constitutional symptoms. Initial troponin was negative in the emergency room EKG was negative for any acute ST or T-wave changes. Initial labs and vital signs were within acceptable range. Patient was admitted to telemetry. Patient had serial troponin negative with serial EKGs negative for any acute ischemic changes. As patient was not able to provide the name of the antihypertensive he takes at home, he was started on UCHE inhibitor due to bradycardia and beta-blockers and AV bryanna agents were not first-line choice due to bradycardia. Patient was evaluated by cardiology and recommended continuation of low-dose lisinopril. Patient had Lexiscan stress test with no stress-induced ischemia identified. There is no further cardiac workup indicated at this time. Patient is able to tolerate diet and activities well. He did not have any further chest pain. Patient is medically stable for discharge. Etiology of chest pain is likely musculoskeletal and was resolved. During the course of hospitalization, patient was also checked for A1c and was within acceptable range. Patient was noted to have mild triglyceridemia with accepted LDL level. He was instructed on therapeutic lifestyle changes and repeat lipid panel in 4 weeks to reassess for statin therapy. Disposition: Patient will be discharged home today. He was given prescription for lisinopril and was repeatedly advised on not to take any other antihypertensives while taking UCHE inhibitors. He was also instructed to follow -up with primary care pain 1-2 weeks to repeat blood pressure. Patient was also instructed to have primary care check renal function in 4-6 weeks as UCHE inhibitors can affect renal function. Patient verbalized discharge instructions. Please note that crop grain or livestock farmer was used while communicating with this gentleman. Approximately 60 minutes was spent in coordinating the discharge on this patient. Case discussed with Dr. Salguero [place] Meds Active Scripts Lisinopril* (Lisinopril*) 5 Mg Tablet, 5 MG PO DAILY, #30 TAB Prov:PATRICIA ARCHIBALD V. [employer]OL GRADER 01/28/17 Ibuprofen* (Motrin*) 600 Mg Tab, 600 MG PO Q6, #30 TAB Prov:KARINE DENNY PA-C 10/26/16 Acetaminophen* (Tylophen*) 500 Mg Capsule, 1 CAP PO Q6H Y for PAIN AND OR ELEVATED TEMP, #20 CAP Prov:WILFREDO FLETCHER [employer] GR[employer]ER 06/06/16 Discontinued Scripts Metronidazole* (Flagyl*) 500 Mg Tablet, 500 MG PO TID for 10 Days, TAB Prov:KARINE DENNY PA-C 10/26/16 Ciprofloxacin Hcl* (Ciprofloxacin Hcl*) 500 Mg Tablet, 500 MG PO BID for 10 Days , TAB Prov:KARINE DENNY PA-C 10/26/16 Follow-up Plan HOME CARE INSTRUCTIONS: Special Diet: Cardiac diet FOLLOW UP/APPOINTMENTS Follow-up Plan 1.Follow up with primary care physician in 1 week If you don't have one please let someone know, we can give you resources that may help you pick one. You may also call your insurance company to assign one to you. Review your medication list with your nurse before leaving and if you need new prescriptions please let your nurse know. I may have made changes to your home medications or given you new prescriptions, please let your primary doctor know as well. Stay compliant with your medications and report any side effects to your PCP or pharmacist. Return to the ER if you have any concerns and cannot reach your doctors or call your insurance company, they usually have a nurse that can help you. 2. Call 911 or go to the nearest emergency room if experiencing loss of consciousness, dizziness, chest pain, shortness of breath, vomiting/abdominal pain, speech difficulties, motor weakness or any unusual symptoms. Primary Care Provider Care Physician PATRICIA Hargrove NP Jan 28, 2017 11:00
--- NOTE | 2017-01-28 12:38 | CONS ---
Date/Time of Note Date/Time of Note DATE: 01/28/17 TIME: 12:35 Assessment/Plan Assessment/Plan Chief Complaint/Hosp Course IMP: 1.Chest pain-negative trop x 3. NO ischemia by stress only scar with NL EF 2.HTN 3.Bradycardia to 50's mainly-mildly increase TSH and NL T4 4,.Dyslipidemia Recc: -Tele -continue asa -Continue zestril Problems: Consultation Date/Type/Reason Admit Date/Time Jan 26, 2017 at 07:46 Initial Consult Date 01/26/2017 Type of Consultation: cardiology Reason for Consultation bradycardia Referring Provider: MOSES FAGAN Exam/Review of Systems Vital Signs Vitals Vital Signs Date Time Temp Pulse Resp B/P Pulse Ox O2 Delivery O2 Flow Rate FiO2 01/28/17 11:19 97.9 54 19 112/72 99 01/26/17 07:18 Room Air Intake and Output 01/27/17 01/27/17 01/28/17 14:59 22:59 06:59 Intake Total 500 ml 200 ml Output Total 900 ml Balance -400 ml 200 ml Exam Review of Systems: CONSTITUTIONAL: No fevers, chills. PULMONARY: No sob CARDIOVASCULAR: No chest pain/palpitations GASTROINTESTINAL: No nausea/vomiting. GENITOURINARY: No hematuria/dysuria. MUSCULOSKELETAL: No myagias/arthalgias. PSYCHIATRIC: The patient denies depression. NEUROLOGIC: No weakness Constitutional: alert Psych: no complaints Head: normocephalic ENMT: mucosa pink and moist Neck: jvd (9 cm water), supple Respiratory: clear to auscultation Cardiovascular: regular rate and rhythm Gastrointestinal: non-tender, soft Musculoskeletal: muscle tone (normal) Extremities: edema (none) Neurological: other (No focal deficits) Results Result Diagram: 01/27/17 0734 01/27/17 0734 Medications Medications Current Medications Ondansetron HCl (Zofran Inj) 4 mg Q6H PRN IV NAUSEA AND/OR VOMITING; Start 01/26 at 05:30 Acetaminophen (Tylenol Tab) 650 mg Q6H PRN PO PAIN LEVEL 1-3 OR FEVER; Start at 05:30 Morphine Sulfate (morphine) 2 mg Q4H PRN IV PAIN LEVEL 7-10 Last administered on 01/26/17t 20:07; Admin Dose 2 MG; Start 01/26/17 at 05:30 Lisinopril (Zestril) 5 mg DAILY PO Last administered on 01/28/17 08:58; Admin Dose 5 MG; Start 01/27/17 at 09:00 Aspirin (Aspirin) 81 mg DAILY PO Last administered on 01/28/17 08:58; Admin Dose 81 MG; Start 01/26/17 at 11:30 Nitroglycerin (Nitroglycerin (Sl Tab) 0.4 Mg) 1 tab Q5M PRN SL ANGINA; Start at 10:30 Guaifenesin (Mucinex) 600 mg BID PO Last administered on 01/28/17 08:58; Admin Dose 600 MG; Start 01/27/17 at 21:00 GILLIAN MOSQUERA Jan 28, 2017 12:38
== END 2017-01-28 14:11 | disposition home or self-care (01) | DRG 313 ==
LOC: FTE 19:36 → MS4 01-26 07:46
PROVIDERS: ADMIT Family Medicine; ATTEND Family Medicine
DX: R07.89 Other chest pain (principal); I10 Essential (primary) hypertension; E78.5 Hyperlipidemia, unspecified; R00.1 Bradycardia, unspecified; T44.7X5A Adverse effect of beta-adrenoreceptor antagonists, initial encounter; Y92.019 Unspecified place in single-family (private) house as the place of occurrence of the external cause; Z79.82 Long term (current) use of aspirin
CPT/HCPCS: 71010; 78452; 80053; 80061; 82550; 82553; 82607; 82652; 83036; 83735; 83880; 84439; 84443; 84484; 85025; 85610; 85730; 93005; 93017; 93306; A9500; A9505; C9113; J2270; J2785

== ENCOUNTER 2017-05-11 23:19 | Emergency (ER) | payer SELFPAY ==
[~2017-05-11] VITALS: Ht 170.2 cm; Wt 85.9 kg
[~2017-05-11 23:19] MED LIST changes: -ACET500C5 PO; -CIPR500T4 PO; -IBUP-1542 PO; +LISI-313 PO; -METR500T PO
[2017-05-12 00:06] VITALS: Ht 170.2 cm; Wt 85.9 kg
== END 2017-05-12 02:26 | disposition left against medical advice (07) ==
LOC: E/R 23:19
DX: Z53.21 Procedure and treatment not carried out due to patient leaving prior to being seen by health care provider (principal)

== ENCOUNTER 2017-11-26 21:37 | Emergency (ER) | END 2017-11-27 05:49 | disposition home or self-care (01) ==

== ENCOUNTER 2018-08-20 08:15 | Emergency (ER) | payer MEDICAID ==
[~2018-08-20] VITALS: Ht 170.2 cm; Wt 84.8 kg
[2018-08-20 08:18] VITALS: Ht 170.2 cm; Wt 84.8 kg
[2018-08-20] MEDS ORDERED: SOD CHLORIDE 0.9% 1,000 ML IV STA (09:18)
[2018-08-20] MEDS ORDERED: KETOROLAC 15 MG INJ IV STA (09:18)
[2018-08-20] MEDS ORDERED: ONDANSETRON 4 MG INJ IV STA (09:18)
--- NOTE | 2018-08-20 09:52 | ERD ---
ER Documentation Chief Complaint Chief Complaint NOE PALPITATIONS X 1 WEEK. HPI 43-year-old otherwise healthy man complains of headache and intermittent palpitations, intermittent dizziness times 1 week. Patient denies loss of consciousness. He does have a history of hypertension and is currently only using lisinopril. He denies fevers or chills, no recent travel, no shortness of breath, no blurry vision, no slurred speech, no weakness in his arms or legs. Patient denies blood per rectum or melena. ROS All systems reviewed and are negative except as per history of present illness. Medications Home Meds Active Scripts Lisinopril* (Lisinopril*) 5 Mg Tablet, 5 MG PO DAILY, #30 TAB Prov:PATRICIA ARCHIBALD NP 01/28/17 Allergies Allergies: Coded Allergies: No Known Allergy (Unverified , 10/26/16) PMhx/Soc High blood pressure History of Surgery: No Anesthesia Reaction: No Hx Neurological Disorder: No Hx Respiratory Disorders: No Hx Cardiac Disorders: Yes (HYPERTENSION) Hx Psychiatric Problems: No Hx Miscellaneous Medical Probl: No Hx Alcohol Use: Yes Hx Substance Use: No Hx Tobacco Use: No FmHx Family History: No diabetes Physical Exam Vitals Vital Signs Date Temp Pulse Resp B/P (MAP) Pulse Ox O2 O2 Flow FiO2 Time Delivery Rate 08/20/18 98.0 59 18 107/87 99 Room Air 11:23 (94) 08/20/18 96.3 52 17 113/65 99 08:18 (81) Physical Exam GENERAL: Well-developed, well-nourished, well-hydrated, in no apparent distress, looks nontoxic in appearance HEENT: Moist mucous membranes, pink conjunctiva, no cervical spine tenderness or step-off deformities, no goiter, no jaundice or icterus, extraocular movements intact without pain. No submandibular induration, and no pharyngeal erythema NEURO: Alert and oriented 3, cranial nerves II through XII intact bilaterally, pupils equal round reactive to light, no focal deficits or facial asymmetry, sensation intact distally Strength 5/5 in upper and lower extremities bilaterally CARDIAC: Bradycardic and regular, no murmurs rubs or gallops LUNGS: Clear bilaterally no wheezing crackles or stridor ABDOMEN: Soft nontender, no guarding, no rigidity, no rebound, no psoas sign no obturator sign. Normoactive bowel sounds SKIN: Warm and dry to touch, no abrasions, contusions, or hematomas, no lacerations, no ecchymosis, no target lesions, and without ulcers EXTREMITIES: No clubbing cyanosis or edema, calves are bilaterally symmetrical, no Homans sign, no popliteal cord sign. Distal pulses equal and bilateral PSYCH: Normal affect without agitation or irritability Result Diagram: 08/20/1852 08/20/18 0952 Results 24 hrs Laboratory Tests Test 08/20/18 09:52 White Blood Count 6.4 10^3/ul Red Blood Count 4.70 10^6/ul Hemoglobin 14.3 g/dl Hematocrit 41.9 % Mean Corpuscular Volume 89.1 fl Mean Corpuscular Hemoglobin 30.4 pg Mean Corpuscular Hemoglobin Concent 34.1 g/dl Red Cell Distribution Width 12.1 % Platelet Count 252 10^3/UL Mean Platelet Volume 11.0 fl Immature Granulocytes % 0.300 % Neutrophils % 56.1 % Lymphocytes % 33.5 % Monocytes % 7.8 % Eosinophils % 1.7 % Basophils % 0.6 % Nucleated Red Blood Cells % 0.0 /100WBC Immature Granulocytes # 0.020 10^3/ul Neutrophils # 3.6 10^3/ul Lymphocytes # 2.1 10^3/ul Monocytes # 0.5 10^3/ul Eosinophils # 0.1 10^3/ul Basophils # 0.0 10^3/ul Nucleated Red Blood Cells # 0.0 10^3/ul Sodium Level 143 mmol/L Potassium Level 4.3 mmol/L Chloride Level 106 mmol/L Carbon Dioxide Level 26 mmol/L Anion Gap 11 Blood Urea Nitrogen 20 mg/dl Creatinine 1.18 mg/dl Est Glomerular Filtrat Rate mL/min > 60 mL/min Glucose Level 79 mg/dl Calcium Level 9.3 mg/dl Total Bilirubin 0.5 mg/dl Direct Bilirubin 0.00 mg/dl Indirect Bilirubin 0.5 mg/dl Aspartate Amino Transf (AST/SGOT) 24 IU/L Alanine Aminotransferase (ALT/SGPT) 22 IU/L Alkaline Phosphatase 71 IU/L Troponin I < 0.012 ng/ml Total Protein 7.3 g/dl Albumin 4.4 g/dl Globulin 2.90 g/dl Albumin/Globulin Ratio 1.51 Lipase 205 U/L Current Medications Medications Dose Sig/Nato Start Time Status Last (Trade) Ordered Route PRN Stop Time Admin Dose Reason Admin Sodium 1,000 ml @ Q1H STAT 08/20/18 DC 08/20/18 Chloride 1,000 mls/hr IV 09:18 08/20/18 09:57 10:17 Ondansetron 4 mg ONCE STAT 08/20/18 DC 08/20/18 HCl (Zofran IV 09:18 08/20/18 09:56 Inj) 09:19 Ketorolac 15 mg ONCE STAT 08/20/18 DC 08/20/18 Tromethamine IV 09:18 08/20/18 09:56 (Toradol) 09:19 Procedures/MDM IV line was established patient was placed on clinical research monitor rhythm strip revealed a narrow complex bradycardia at 50 bpm with upright P and T waves. Patient was afebrile EKG performed, read by me revealed a sinus bradycardia 48 bpm, normal axis, right ventricular conduction delay QRS duration 110 ms, no concerning ST elevations or depressions noted. One AP view of the chest performed, read by me reveals no acute infiltrates, normal mediastinum, sharp costophrenic and cardiac borders, no air under the diaphragm. Otherwise unremarkable chest x-ray. I administered 1 L normal saline IV, Toradol 15 mg IV, Zofran 4 mg IV. CBC and electrolytes were normal, liver function tests are normal, troponin was negative. The patient's bradycardia may or may not be contributing to his complaints of dizziness although is generally healthy and fit and has had no episodes of loss of consciousness or near syncope and can be managed as an outpatient. His workup in the ER today was fairly unremarkable, his headache resolved, and I recommended he continue his medications until following up with his PMD for cardiology referral as an outpatient. He agreed to this plan and thanked me. Differential diagnoses considered, included but not limited to acute coronary syndrome, pulmonary embolism, aortic dissection, abdominal aortic aneurysm, sepsis, stroke, meningitis, encephalitis, pneumonia, appendicitis, cholecystitis, bowel obstruction, pyelonephritis, nephrolithiasis, cystitis, as well as metabolic, hematologic, and electrolyte abnormalities. As well as abscess, cellulitis, fractures, and dislocations. Patient feels much better at this time, and vital signs are normal, symptoms have improved. I did give strict instructions to return to the ED if symptoms continue or worsen, patient will otherwise follow-up with primary care physician. Patient understood instructions and agreed to plan. Disclaimer: Inadvertent spelling and grammatical errors are likely due to EHR/dictation software use and do not reflect on the overall quality of patient care. Also, please note that the electronic time recorded on this note does not necessarily reflect the actual time of the patient encounter. Departure Diagnosis: Primary Impression: Dizziness Additional Impression: Bradycardia Condition: Good CHINTAN DYER MD Aug 20, 2018 09:52
[2018-08-20 11:23] VITALS: BP 107/87; PULSE 59; RESP 18
== END 2018-08-20 11:26 | disposition home or self-care (01) ==
LOC: E/R 08:15
DX: R42 Dizziness and giddiness (principal); R40.2142 Coma scale, eyes open, spontaneous, at arrival to emergency department; R40.2362 Coma scale, best motor response, obeys commands, at arrival to emergency department; R40.2252 Coma scale, best verbal response, oriented, at arrival to emergency department; R00.1 Bradycardia, unspecified; I10 Essential (primary) hypertension
CPT/HCPCS: 71045; 80053; 83690; 84484; 85025; J1885; J2405; J7030; 36415; 93005; 96361; 96374; 96375

== ENCOUNTER 2018-09-07 18:44 | Emergency (ER) | payer SELFPAY ==
[~2018-09-07] VITALS: Ht 170.2 cm; Wt 85.7 kg
[2018-09-07 19:44] VITALS: BP 143/86; PULSE 54; RESP 16; Ht 170.2 cm; Wt 85.7 kg
== END 2018-09-07 22:50 | disposition left against medical advice (07) ==
LOC: E/R 18:44
DX: Z53.21 Procedure and treatment not carried out due to patient leaving prior to being seen by health care provider (principal)
CPT/HCPCS: 93005

== ENCOUNTER 2018-10-25 18:54 | Emergency (ER) | payer MEDICAID ==
[~2018-10-25] VITALS: Ht 170.2 cm; Wt 86.9 kg
[2018-10-25 18:58] VITALS: Ht 170.2 cm; Wt 86.9 kg
[2018-10-25] MEDS ORDERED: KETOROLAC 30 MG INJ IV STA (19:35)
[2018-10-25] MEDS ORDERED: PANTOPRAZOLE 40 MG INJ IV ONE (20:00)
[2018-10-25] MEDS ORDERED: FENO145T25 PO (21:56)
[2018-10-25] MEDS ORDERED: LISI2.5T59 PO (21:56)
[2018-10-25 23:10] VITALS: BP 114/82; PULSE 59; RESP 18
--- NOTE | 2018-10-31 14:09 | ERD ---
ER Documentation Chief Complaint Chief Complaint CP X'S 1 WEEK HPI The patient is a 43-year-old male, presenting to the ER because of intermittent substernal chest discomfort for 1 week, denies chest pain at this time, complains of frequent burping and flatulence that made his chest pressure better. He denies fever, abdominal pain, vomiting, dizzy, diarrhea, denies chest pain with exertion/radiation/diaphoresis/vomiting. He does not smoke nor drink, negative family history for cardiac disease Past medical history: Hypertension Past surgical history: None ROS All systems reviewed and are negative except as per history of present illness. Medications Home Meds Reported Medications Fenofibrate Nanocrystallized* (Tricor*) 145 Mg Tablet, 145 MG PO QAM, TAB 10/25/18 Lisinopril* (Lisinopril*) 2.5 Mg Tablet, 2.5 MG PO QPM, #30 TAB 10/25/18 Discontinued Scripts Lisinopril* (Lisinopril*) 5 Mg Tablet, 5 MG PO DAILY, #30 TAB Prov:PATRICIA ARCHIBALD NP 01/28/17 Allergies Allergies: Coded Allergies: No Known Allergy (Unverified , 10/26/16) PMhx/Soc Medical and Surgical Hx: pt denies Surgical Hx History of Surgery: No Anesthesia Reaction: No Hx Neurological Disorder: No Hx Respiratory Disorders: No Hx Cardiac Disorders: Yes (HYPERTENSION, HLD) Hx Psychiatric Problems: No Hx Miscellaneous Medical Probl: No Hx Alcohol Use: Yes Hx Substance Use: No Hx Tobacco Use: No Smoking Status: Never smoker Physical Exam Physical Exam Const: No acute distress. Head: Atraumatic. Eyes: Normal Conjunctiva. ENT: Normal External Ears, Nose and Mouth. Neck: Full range of motion. No meningismus. Resp: Clear to auscultation bilaterally. Cardio: Regular rate and rhythm. Abd: Soft, non distended, normal bowel sounds, non tender. Skin: No petechiae or rashes. Back: No midline or flank tenderness. Ext: No cyanosis, or edema. Neur: Awake and alert. No focal deficit Psych: Normal Mood and Affect. Results 24 hrs Laboratory Tests Test 10/25/18 19:53 White Blood Count 8.4 10^3/ul Red Blood Count 5.02 10^6/ul Hemoglobin 15.4 g/dl Hematocrit 43.9 % Mean Corpuscular Volume 87.5 fl Mean Corpuscular Hemoglobin 30.7 pg Mean Corpuscular Hemoglobin Concent 35.1 g/dl Red Cell Distribution Width 12.6 % Platelet Count 234 10^3/UL Mean Platelet Volume 10.4 fl Immature Granulocytes % 0.600 % Neutrophils % 51.6 % Lymphocytes % 34.6 % Monocytes % 8.7 % Eosinophils % 3.7 % Basophils % 0.8 % Nucleated Red Blood Cells % 0.0 /100WBC Immature Granulocytes # 0.050 10^3/ul Neutrophils # 4.3 10^3/ul Lymphocytes # 2.9 10^3/ul Monocytes # 0.7 10^3/ul Eosinophils # 0.3 10^3/ul Basophils # 0.1 10^3/ul Nucleated Red Blood Cells # 0.0 10^3/ul Sodium Level 143 mmol/L Potassium Level 3.7 mmol/L Chloride Level 105 mmol/L Carbon Dioxide Level 28 mmol/L Anion Gap 10 Blood Urea Nitrogen 21 mg/dl Creatinine 1.07 mg/dl Est Glomerular Filtrat Rate mL/min > 60 mL/min Glucose Level 100 mg/dl Calcium Level 9.7 mg/dl Total Bilirubin 0.4 mg/dl Direct Bilirubin 0.00 mg/dl Indirect Bilirubin 0.4 mg/dl Aspartate Amino Transf (AST/SGOT) 23 IU/L Alanine Aminotransferase (ALT/SGPT) 24 IU/L Alkaline Phosphatase 83 IU/L Troponin I < 0.012 ng/ml Total Protein 7.5 g/dl Albumin 4.5 g/dl Globulin 3.00 g/dl Albumin/Globulin Ratio 1.50 Lipase 1129 U/L Current Medications Medications Dose Sig/Nato Start Time Status Last (Trade) Ordered Route PRN Stop Time Admin Dose Reason Admin Ketorolac 30 mg ONCE STAT 10/25/18 DC 10/25/18 Tromethamine IV 19:35 10/25/18 20:00 (Toradol) 19:37 40 mg ONCE ONCE 10/25/18 DC 10/25/18 Pantoprazole IV 20:00 10/25/18 19:59 (Protonix 20:01 Iv) Procedures/MDM EKp Read by emergency physician Rate/Rhythm: Normal Sinus Rhythm 90 beats/min QRS, ST, T-waves: No ST elevation, no T inversion Impression: Normal EKG EK:42p Read by emergency physician Rate/Rhythm: Normal Sinus Rhythm 64 beats/min QRS, ST, T-waves: No ST elevation, no T inversion Impression: Normal EKG MEDICAL MAKING DECISION: The patient is a 43-year-old male, presenting with acute chest discomfort of unclear etiology, is stable for outpatient follow-up The differential diagnoses considered include but are not limited to acute coronary syndrome, acute myocardial infarction, pericarditis, pulmonary em bolism, aortic dissection, pneumonia, pleural effusion, pneumothorax, GERD, chest wall pain. Departure Diagnosis: Primary Impression: Chest pain Condition: Good Patient Instructions: Chest Pain, Uncertain Cause Referrals: NO PRIMARY,CARE PHYSICIAN (PCP) Additional Instructions: Call your primary care doctor TOMORROW for an appointment during the next 1-2 days for reevaluation and referral to cardiology in the next 2-3 days .See the doctor sooner or return here if your condition worsens before your appointment time. ROB TYSON MD October 31, 2018 14:09
== END 2018-10-25 23:15 | disposition home or self-care (01) ==
LOC: E/R 18:54
DX: R07.9 Chest pain, unspecified (principal); I10 Essential (primary) hypertension
CPT/HCPCS: 36415; 71045; 80053; 83690; 84484; 85025; 93005; 96374; 96375; C9113; J1885; Z7502

== ENCOUNTER 2019-01-04 19:32 | Inpatient (IN) | payer MEDICAID ==
[~2019-01-04] VITALS: Ht 162.6 cm; Wt 86.1 kg
[~2019-01-04 19:32] MED LIST changes: +FENO145T25 PO; -LISI-313 PO; +LISI2.5T59 PO
[2019-01-05] MEDS ORDERED: ACETAMINOPHEN 325 MG TAB PO PRN ×2 (01:00→02:00)
[2019-01-05] MEDS ORDERED: ONDANSETRON 4 MG INJ IV PRN ×2 (01:00→02:00)
[2019-01-05] MEDS ORDERED: SOD CHLORIDE 0.9% 1,000 ML IV SCH (01:47)
[2019-01-05] MEDS ORDERED: NACL 0.9% 3 ML SYG IV SCH (02:00)
[2019-01-05] MEDS ORDERED: ALBUTEROL/IPRATROPIUM (NEB) 3 ML AMP HHN PRN (02:00)
[2019-01-05] MEDS ORDERED: NITROGLYCERIN (SL) 0.4 MG TAB SL PRN (02:00)
[2019-01-05 03:10] VITALS: BP 123/77; PULSE 50; RESP 20
[2019-01-05 03:15] VITALS: Ht 162.6 cm; Wt 86.1 kg
--- NOTE | 2019-01-05 03:34 | ERD ---
ER Documentation Chief Complaint Chief Complaint cp/dizziness/headache x 1 day HPI Is a 43 male comes in with left-sided chest pain that radiates to his left arm for the past day on and off. Denies any fevers or chills. Denies any nausea vomiting. Denies any shortness of breath. Denies palpitations. Denies any other current complaints. ROS All systems reviewed and are negative except as per history of present illness. Medications Home Meds Reported Medications Fenofibrate Nanocrystallized* (Tricor*) 145 Mg Tablet, 145 MG PO QAM, TAB 10/25/18 Lisinopril* (Lisinopril*) 2.5 Mg Tablet, 2.5 MG PO QPM, #30 TAB 10/25/18 Allergies Allergies: Coded Allergies: No Known Allergy (Unverified , 01/05/19) PMhx/Soc History of Surgery: No Anesthesia Reaction: No Hx Neurological Disorder: No Hx Respiratory Disorders: No Hx Cardiac Disorders: Yes (HYPERTENSION, HLD) Hx Psychiatric Problems: No Hx Miscellaneous Medical Probl: No Hx Alcohol Use: Yes Hx Substance Use: No Hx Tobacco Use: No Smoking Status: Never smoker Physical Exam Vitals Vital Signs Date Temp Pulse Resp B/P (MAP) Pulse Ox O2 O2 Flow FiO2 Time Delivery Rate 01/04/19 98.5 63 18 139/9 (52) 98 20:10 Physical Exam Const: No acute distress Head: Atraumatic Eyes: Normal Conjunctiva ENT: Normal External Ears, Nose and Mouth. Neck: Full range of motion. No meningismus. Resp: Clear to auscultation bilaterally Cardio: Regular rate and rhythm, no murmurs Abd: Soft, non tender, non distended. Normal bowel sounds Skin: No petechiae or rashes Back: No midline or flank tenderness Ext: No cyanosis, or edema Neur: Awake and alert Psych: Normal Mood and Affect Result Diagram: 01/04/19232801/04/192328 Results 24 hrs Laboratory Tests Test 01/04/19 23:29 White Blood Count 8.7 10^3/ul Red Blood Count 5.42 10^6/ul Hemoglobin 16.6 g/dl Hematocrit 48.0 % Mean Corpuscular Volume 88.6 fl Mean Corpuscular Hemoglobin 30.6 pg Mean Corpuscular Hemoglobin Concent 34.6 g/dl Red Cell Distribution Width 12.2 % Platelet Count 270 10^3/UL Mean Platelet Volume 10.5 fl Immature Granulocytes % 0.200 % Neutrophils % 57.7 % Lymphocytes % 33.8 % Monocytes % 6.5 % Eosinophils % 1.3 % Basophils % 0.5 % Nucleated Red Blood Cells % 0.0 /100WBC Immature Granulocytes # 0.020 10^3/ul Neutrophils # 5.0 10^3/ul Lymphocytes # 2.9 10^3/ul Monocytes # 0.6 10^3/ul Eosinophils # 0.1 10^3/ul Basophils # 0.0 10^3/ul Nucleated Red Blood Cells # 0.0 10^3/ul Sodium Level 144 mmol/L Potassium Level 4.3 mmol/L Chloride Level 106 mmol/L Carbon Dioxide Level 27 mmol/L Anion Gap 11 Blood Urea Nitrogen 19 mg/dl Creatinine 1.31 mg/dl Est Glomerular Filtrat Rate mL/min 59 mL/min Glucose Level 95 mg/dl Calcium Level 10.0 mg/dl Troponin I < 0.012 ng/ml B-Type Natriuretic Peptide 19 PG/ML Procedures/MDM EKG: Rate/Rhythm: Normal Sinus Rhythm QRS, ST, T-waves: No changes consistent w/ acute ischemia Impression: No evidence of ischemia or arrhythmia Chest X-ray 1V Interpreted by me: Soft Tissue: No acute abno rmalities Bones: No acute abnormalities Mediastinum/Cardiac Silhouette/Lungs: No acute abnormalities Patient's symptoms are concerning for cardiac cause will require inpatient workup and continuous monitoring. Further w/u for ischemia, arrhythmia, PE or dissection will be deferred to the inpatient team. Accepting Care Team: Current data and ongoing care discussed. Time: 12:48 AM Primary Provider: Hospitalist Consulting: Deferred to inpatient team Outstanding Data: none Departure Diagnosis: Primary Impression: Chest pain Chest pain type: unspecified Qualified Codes: R07.9 - Chest pain, unspeci fied Condition: Serious BETSY CHUNG Jan 05, 2019 03:34
[2019-01-05 04:00] VITALS: BP 117/76; PULSE 55; RESP 18
[2019-01-05 07:20] VITALS: BP_SYST 115; BP_SYST 163; BP_DIAS 73; BP_DIAS 74; PULSE 63; PULSE 74; RESP 22
[2019-01-05] MEDS ORDERED: HEPARIN 5,000 UNIT/1 ML VIAL SC SCH (09:00)
[2019-01-05] MEDS ORDERED: ASPIRIN 81 MG TAB PO SCH (09:00)
[2019-01-05] MEDS ORDERED: FENOFIBRATE 145 MG TAB PO SCH (09:00)
--- NOTE | 2019-01-05 10:23 | HP ---
Date/Time of Note Date/Time of Note DATE: 01/05/19 TIME: 10:20 Assessment/Plan VTE Prophylaxis Risk score (from Ns)>0 risk: 1 SCD applied (from Ns): Yes Pharmacological prophylaxis: heparin Lines/Catheters IV Catheter Type (from Nrs): Saline Lock Urinary Cath still in place: No Assessment/Plan Assessment/Plan 1. Chest pain: Rule out ACS 2. Sinus bradycardia: This explains patient's dizziness/palpitation -Telemetry monitoring -Check TSH -Serial troponin -Cardiology consult 3. Hypertension: Adjust BP meds as needed 4. Dyslipidemia: Statin Result Diagram: 01/05/19 0500 01/05/19 0500 Results 24hrs Laboratory Tests Test 01/04/19 23:29 01/05/19 04:59 01/05/19 05:00 White Blood Count 8.7 6.4 # Red Blood Count 5.42 5.08 Hemoglobin 16.6 15.4 Hematocrit 48.0 44.7 Mean Corpuscular Volume 88.6 88.0 Mean Corpuscular Hemoglobin 30.6 30.3 Mean Corpuscular Hemoglobin Concent 34.6 34.5 Red Cell Distribution Width 12.2 12.2 Platelet Count 270 258 Mean Platelet Volume 10.5 H 10.5 H Immature Granulocytes % 0.200 0.300 Neutrophils % 57.7 59.9 Lymphocytes % 33.8 30.0 Monocytes % 6.5 7.2 Eosinophils % 1.3 2.0 Basophils % 0.5 0.6 Nucleated Red Blood Cells % 0.0 0.0 Immature Granulocytes # 0.020 0.020 Neutrophils # 5.0 3.8 Lymphocytes # 2.9 1.9 Monocytes # 0.6 0.5 Eosinophils # 0.1 0.1 Basophils # 0.0 0.0 Nucleated Red Blood Cells # 0.0 0.0 Sodium Level 144 145 H Potassium Level 4.3 3.7 Chloride Level 106 108 Carbon Dioxide Level 27 27 Anion Gap 11 10 Blood Urea Nitrogen 19 18 Creatinine 1.31 H 1.19 Est Glomerular Filtrat Rate mL/min 59 L > 60 Glucose Level 95 125 Calcium Level 10.0 9.4 Troponin I < 0.012 < 0.012 B-Type Natriuretic Peptide 19 Creatine Kinase 104 Creatine Kinase Index 1.3 Creatinine Kinase MB (Mass) 1.34 Hemoglobin A1c 5.4 Magnesium Level 2.0 Total Bilirubin 0.8 Direct Bilirubin 0.00 Indirect Bilirubin 0.8 Aspartate Amino Transf (AST/SGOT) 23 Alanine Aminotransferase (ALT/SGPT) 24 Alkaline Phosphatase 64 Total Protein 7.1 Albumin 4.2 Globulin 2.90 Albumin/Globulin Ratio 1.44 Triglycerides Level 72 Cholesterol Level 132 LDL Cholesterol, Calculated 89 HDL Cholesterol 29 Cholesterol/HDL Ratio 4.5 Thyroid Stimulating Hormone (TSH) 2.280 HPI/ROS Admit Date/Time Admit Date/Time Jan 05, 2019 at 00:51 Hx of Present Illness This is a 43-year-old male with a history of hypertension and dyslipidemia who presented to the ER complaining of chest pain, dizziness and palpitation. His symptom is been intermittently going on for the past several months for which he actually came to the ER for evaluation previously. Chest pain is located in the mid chest and also left-sided. When he presented to the ER, he is found to have with a heart rate as low as 46, mostly in the 50s. EKG without ST-T wave abnormalities. Patient had a negative stress test in 2017. His troponin here is, please a first troponin negative so far. PMH/Family/Social Past Medical History Past Surgical Hx: other (see HPI) Family History Significant Family History: no pertinent family hx Social History Alcohol Use: none Smoking Status: Never smoker Drug Use: none Exam Constitutional: No acute distress Head: normocephalic, atraumatic Eyes: EOMI, PERRL Respiratory: no distress Cardiovascular: regular rate and rhythm Gastrointestinal: soft Extremities: normal pulses Medications Current Medications Ondansetron HCl (Zofran Inj) 4 mg ER BRIDGE PRN IV NAUSEA/VOMITING; Start 01/05/19 at 01:00; Stop 01/06/19 at 00:59 Acetaminophen (Tylenol Tab) 650 mg ER BRIDGE PRN PO .MILD PAIN 1-3 OR TEMP; Start 01/05/19 at 01:00; Stop 01/06/19 at 00:59 IV Flush (NS 3 ml) 3 ml PER PROTOCOL IV ; Start 01/05/19 at 02:00 Ondansetron HCl (Zofran Inj) 4 mg Q6H PRN IV NAUSEA/VOMITING; Start 01/05/19 at 02:00 Aspirin (Aspirin) 81 mg DAILY PO Last administered on 01/05/19at 08:35; Admin Dose 81 MG; Start 01/05/19 at 09:00 Nitroglycerin (Nitroglycerin (Sl Tab) 0.4 Mg) 1 tab Q5M PRN SL .CHEST PAIN; Start 01/05/19 at 02:00 Acetaminophen (Tylenol Tab) 650 mg Q6H PRN PO .PAIN 1-3 OR TEMP Last administered on 01/05/19at 03:14; Admin Dose 650 MG; Start 01/05/19 at 02:00 Heparin Sodium (Porcine) (Heparin (5000 Units/1ml)) 5,000 unit Q12 SC Last administered on 01/05/19at 09:32; Admin Dose 5,000 UNIT; Start 01/05/19 at 09:00 Albuterol/ Ipratropium (Duoneb) 3 ml Q2H RESP THERAPY PRN HHN SHORTNESS OF BREATH; Start 01/05/19 at 02:00 Fenofibrate (Tricor) 145 mg QAM PO Last administered on 01/05/19at 08:35; Admin Dose 145 MG; Start 01/05/19 at 09:00 Coded Allergies: No Known Allergy (Unverified , 01/05/19) Social History Smoking Status: Former smoker Exam/Review of Systems Vital Signs Vitals Vital Signs Date Temp Pulse Resp B/P (MAP) Pulse Ox O2 O2 Flow FiO2 Time Delivery Rate 01/05/19 97.8 63 22 115/73 96 Room Air 07:20 (87) Intake and Output 01/04/19 01/04/19 01/05/19 1515:00 23:00 07:00 IntakeIntake Total 890 ml BalanceBalance 890 ml BETSY JACOBS MD Jan 05, 2019 10:23
--- NOTE | 2019-01-05 10:36 | CONS ---
Assessment/Plan Assessment/Plan Hospital Course (Demo Recall) Chest pain: Atypical and nonexertional. Has CAD risk factors and "moderate scar" on Lexiscan 2017 which was likely artifact considering the normal EF and wall motion. Will officially rule out with cardiac CTA for anatomic assessment Dizziness: orthostatic symptoms and mild renal failure on admission which improved with hydration suggests dehydration Sinus bradycardia: nonpathologic Mild acute renal failure: Cr 1.3->1.1 after fluids HTN: controlled HL: on fenofibrate. TG normal, LDL 89 -cardiac CTA. If normal can discharge fro my perspective -ASA for now. D/c if normal coronaries Consultation Date/Type/Reason Admit Date/Time Jan 05, 2019 at 00:51 Date of Consultation: Jan 05, 2019 Type of Consult Cardiology Reason for Consultation Chest pain Requesting Provider: BETSY JACOBS MD Date/Time of Note DATE: 01/05/19 TIME: 10:21 Hx of Present Illness 43 yo M with a h/o HTN, HL, who presented with chest pain and dizziness. He was admitted for the same 2016 and had a Lexiscan showing moderate inferior scar but normal EF by MPI and echo. He was discharged at that time. He has been having 6 days of chest pain and dizziness which occur mostly when he stands up but also at random times. He actually states that it is better when he walks. No prior h/o PR. No family history of CAD. Nonsmoker. Normal EKG and trops. HR 50s sinus bradycardia overnight,. per hPI Past Medical History per hPI Home Meds Reported Medications Fenofibrate Nanocrystallized* (Tricor*) 145 Mg Tablet, 145 MG PO QAM, TAB 10/25/18 Lisinopril* (Lisinopril*) 2.5 Mg Tablet, 2.5 MG PO QPM, #30 TAB 10/25/18 Medications Current Medications Ondansetron HCl (Zofran Inj) 4 mg ER BRIDGE PRN IV NAUSEA/VOMITING; Start 01/05/19 at 01:00; Stop 01/06/19 at 00:59 Acetaminophen (Tylenol Tab) 650 mg ER BRIDGE PRN PO .MILD PAIN 1-3 OR TEMP; Start 01/05/19 at 01:00; Stop 01/06/19 at 00:59 IV Flush (NS 3 ml) 3 ml PER PROTOCOL IV ; Start 01/05/19 at 02:00 Ondansetron HCl (Zofran Inj) 4 mg Q6H PRN IV NAUSEA/VOMITING; Start 01/05/19 at 02:00 Aspirin (Aspirin) 81 mg DAILY PO Last administered on 01/05/19at 08:35; Admin Dose 81 MG; Start 01/05/19 at 09:00 Nitroglycerin (Nitroglycerin (Sl Tab) 0.4 Mg) 1 tab Q5M PRN SL .CHEST PAIN; Start 01/05/19 at 02:00 Acetaminophen (Tylenol Tab) 650 mg Q6H PRN PO .PAIN 1-3 OR TEMP Last administered on 01/05/19at 03:14; Admin Dose 650 MG; Start 01/05/19 at 02:00 Heparin Sodium (Porcine) (Heparin (5000 Units/1ml)) 5,000 unit Q12 SC Last administered on 01/05/19at 09:32; Admin Dose 5,000 UNIT; Start 01/05/19 at 09:00 Albuterol/ Ipratropium (Duoneb) 3 ml Q2H RESP THERAPY PRN HHN SHORTNESS OF BREATH; Start 01/05/19 at 02:00 Fenofibrate (Tricor) 145 mg QAM PO Last administered on 01/05/19at 08:35; Admin Dose 145 MG; Start 01/05/19 at 09:00 Allergies: Coded Allergies: No Known Allergy (Unverified , 01/05/19) Social History Smoking Status: Former smoker Exam/Review of Systems Vital Signs Vitals Vital Signs Date Temp Pulse Resp B/P (MAP) Pulse Ox O2 O2 Flow FiO2 Time Delivery Rate 01/05/19 97.8 63 22 115/73 96 Room Air 07:20 (87) Intake and Output 01/04/19 01/04/19 01/05/19 1414:59 22:59 06:59 IntakeIntake Total 890 ml BalanceBalance 890 ml Exam Constitutional: alert, oriented Psych: no complaints, nl mood/affect Head: normocephalic, atraumatic Neck: No jvd Respiratory: clear to auscultation; No crackles/rales, No diminished breath sounds Cardiovascular: No regular rate and rhythm (bradycardic, normal rhythm ), No edema Gastrointestinal: soft, non-tender; No distended Neurological: nl mental status, nl speech Labs Result Diagram: 01/05/19 0500 01/05/19 0500 Results 24hrs Laboratory Tests Test 01/04/19 23:29 01/05/19 04:59 01/05/19 05:00 White Blood Count 8.7 6.4 # Red Blood Count 5.42 5.08 Hemoglobin 16.6 15.4 Hematocrit 48.0 44.7 Mean Corpuscular Volume 88.6 88.0 Mean Corpuscular Hemoglobin 30.6 30.3 Mean Corpuscular Hemoglobin Concent 34.6 34.5 Red Cell Distribution Width 12.2 12.2 Platelet Count 270 258 Mean Platelet Volume 10.5 H 10.5 H Immature Granulocytes % 0.200 0.300 Neutrophils % 57.7 59.9 Lymphocytes % 33.8 30.0 Monocytes % 6.5 7.2 Eosinophils % 1.3 2.0 Basophils % 0.5 0.6 Nucleated Red Blood Cells % 0.0 0.0 Immature Granulocytes # 0.020 0.020 Neutrophils # 5.0 3.8 Lymphocytes # 2.9 1.9 Monocytes # 0.6 0.5 Eosinophils # 0.1 0.1 Basophils # 0.0 0.0 Nucleated Red Blood Cells # 0.0 0.0 Sodium Level 144 145 H Potassium Level 4.3 3.7 Chloride Level 106 108 Carbon Dioxide Level 27 27 Anion Gap 11 10 Blood Urea Nitrogen 19 18 Creatinine 1.31 H 1.19 Est Glomerular Filtrat Rate mL/min 59 L > 60 Glucose Level 95 125 Calcium Level 10.0 9.4 Troponin I < 0.012 < 0.012 B-Type Natriuretic Peptide 19 Creatine Kinase 104 Creatine Kinase Index 1.3 Creatinine Kinase MB (Mass) 1.34 Hemoglobin A1c 5.4 Magnesium Level 2.0 Total Bilirubin 0.8 Direct Bilirubin 0.00 Indirect Bilirubin 0.8 Aspartate Amino Transf (AST/SGOT) 23 Alanine Aminotransferase (ALT/SGPT) 24 Alkaline Phosphatase 64 Total Protein 7.1 Albumin 4.2 Globulin 2.90 Albumin/Globulin Ratio 1.44 Triglycerides Level 72 Cholesterol Level 132 LDL Cholesterol, Calculated 89 HDL Cholesterol 29 Cholesterol/HDL Ratio 4.5 Thyroid Stimulating Hormone (TSH) 2.280 Imaging Imaging EKG: sinus bradycardia, no ST changes Medications Medications Current Medications Ondansetron HCl (Zofran Inj) 4 mg ER BRIDGE PRN IV NAUSEA/VOMITING; Start 01/05/19 at 01:00; Stop 01/06/19 at 00:59 Acetaminophen (Tylenol Tab) 650 mg ER BRIDGE PRN PO .MILD PAIN 1-3 OR TEMP; Start 01/05/19 at 01:00; Stop 01/06/19 at 00:59 IV Flush (NS 3 ml) 3 ml PER PROTOCOL IV ; Start 01/05/19 at 02:00 Ondansetron HCl (Zofran Inj) 4 mg Q6H PRN IV NAUSEA/VOMITING; Start 01/05/19 at 02:00 Aspirin (Aspirin) 81 mg DAILY PO Last administered on 01/05/19 08:35; Admin Dose 81 MG; Start 01/05/19 at 09:00 Nitroglycerin (Nitroglycerin (Sl Tab) 0.4 Mg) 1 tab Q5M PRN SL .CHEST PAIN; Start 01/05/19 at 02:00 Acetaminophen (Tylenol Tab) 650 mg Q6H PRN PO .PAIN 1-3 OR TEMP Last administered on 01/05/19at 03:14; Admin Dose 650 MG; Start 01/05/19 at 02:00 Heparin Sodium (Porcine) (Heparin (5000 Units/1ml)) 5,000 unit Q12 SC Last administered on 01/05/19at 09:32; Admin Dose 5,000 UNIT; Start 01/05/19 at 09:00 Albuterol/ Ipratropium (Duoneb) 3 ml Q2H RESP THERAPY PRN HHN SHORTNESS OF BREATH; Start 01/05/19 at 02:00 Fenofibrate (Tricor) 145 mg QAM PO Last administered on 01/05/19at 08:35; Admin Dose 145 MG; Start 01/05/19 at 09:00 ADELFO GILL Jan 05, 2019 10:31
[2019-01-05] MEDS ORDERED: IOHEXOL 100 ML ONE (10:38)
[2019-01-05] MEDS ORDERED: SOD CHLORIDE 0.9% 100 ML ONE (10:38)
[2019-01-05] MEDS ORDERED: NITROGLYCERIN AEROSOL (4.9 GM) ONE (11:09)
[2019-01-05 11:41] VITALS: BP 119/79; PULSE 22; PULSE 58; RESP 22
[2019-01-05 12:00] VITALS: BP 118/78; PULSE 58; RESP 22
--- NOTE | 2019-01-05 14:03 | DS ---
Date/Time of Note Date/Time of Note DATE: 01/05/19 TIME: 13:57 Discharge Summary Admission/Discharge Info Admit Date/Time Jan 05, 2019 at 00:51 Discharge Date/Time Discharge Diagnosis 1. Chest pain, atypical, negative coronary CTA 2. Sinus bradycardia, asymptomatic 3. Hypertension, controlled 4. Dyslipidemia, follow up with PCP Patient Condition: Stable Procedures PROCEDURE: CTA of the coronary arteries. CLINICAL INDICATION: Chest pain COMPARISON: No previous relevant images are available for comparison. TECHNIQUE: CTA of the coronary arteries with multiphasic ECG-gated volumetric acquisition from the ascending aorta to the diaphragm performed with intravenous contrast on a high-resolution multi detector scanner with multiphasic reconstructions. Multiplanar reconstructions, three-dimensional reconstructions, as well as maximal intensity projection images are produced and reviewed. One or more of the following dose reduction techniques were used: Automated exposure control; Adjustment of the mA and/or kV according to patient size; Use of iterative reconstruction technique; ECG dose modulation. CTDI = 8, 2, 34, 83 mGy. DLP = 1665 mGy-cm. DICOM images are available. Stenosis classification of vessels greater than 1.5 mm in diameter: None 0%, Minimal 1-24%, Mild 25-49%, Moderate 50-69%, Severe 70-99%, Occluded 100% CONTRAST: 100 mL of Omnipaque 350 intravenously without adverse event. FINDINGS: Overall exam quality and angiographic enhancement: Excellent. Origins and course of the coronary arteries: Normal. Coronary artery system dominance pattern: Right. Total calcium score: 2.4 Not fully diagnostic segments due to artifacts: None. RCA: Normal. PLB: Normal. PDA: Normal. LM: Normal. RI: Normal. LAD: Small calcified plaque in the proximal segment does not produce any stenosis. Mid and distal segments are normal. Diags: Normal. LCX: Normal. OMs: Normal. Pericardium: Normal. Pericardial effusion: None. Heart size: Normal. Aortic valve: Trileaflet morphology. No evidence of thickening or calcification. Normal diastolic coaptation. Normal systolic excursion. Mitral valve: Normal morphology. No evidence of thickening or calcification. No evidence of prolapse on systolic images. Myocardial attenuation: Normal. Intracardiac enhancement: No left-sided filling defects to suggest the presence of mass or thrombus. Left atrial appendage is well opacified. Extracardiac findings within the partially visualized chest: Aorta: Normal caliber. Lung parenchyma: No evidence of airspace or interstitial disease. Airways: Clear; normal caliber and configuration. Pulmonary arteries: Normal caliber centrally. Branch vessels are incompletely visualized. Thoracic veins: Normal appearance for the phase of enhancement. Mediastinum: No evidence of mass or fluid collection. Lymph nodes: No mediastinal, hilar, or axillary lymphadenopathy. A few small partially calcified hilar lymph nodes are present. Osseous structures: Intact. Upper abdomen: No abnormalities. Other findings: None. IMPRESSION: Total calcium score: 2.4 RCA: Normal. LM: Normal. LAD: Small calcified plaque in the proximal segment does not produce any stenosis. Mid and distal segments are normal. LCX: Normal. RPTAT: AADD .Artie Whitlock MD, MD Date Time Electronically viewed and signed by .Artie Whitlock MD, MD on 01/05/2019 12:19 .B/ CC: ADELFO GILL [id number] Hospital Course 43 yo M with a h/o HTN, HL, who presented with chest pain and dizziness. He was admitted for the same 2017 and had a Lexiscan showing moderate inferior scar but normal EF by MPI and echo. He was discharged at that time. He has been having 6 days of chest pain and dizziness which occur mostly when he stands up but also at random times. He actually states that it is better when he walks. No prior h/o OH. No family history of CAD. Nonsmoker. No chest pain today. Normal EKG and trops. Coronary CT angiography is negative. Chest pain is noncardiac. Patient has sinus bradycardia down to 50 but he is asymptomatic. Normal TSH. No treatment needed. Home Meds Reported Medications Fenofibrate Nanocrystallized* (Tricor*) 145 Mg Tablet, 145 MG PO QAM, TAB 10/25/18 Lisinopril* (Lisinopril*) 2.5 Mg Tablet, 2.5 MG PO QPM, #30 TAB 10/25/18 Follow-up Plan PCP in one week Primary Care Provider Care Physician No Primary Pending Labs Laboratory Tests Test 01/04/19 23:29 01/05/19 04:59 01/05/19 05:00 01/05/19 11:33 White Blood 8.7 6.4 Count 10^3/ul (4.8-10 10^3/ul (4.8-1 .8) 0.8) Red Blood 5.42 5.08 Count 10^6/ul (4.70-6 10^6/ul (4.70- .10) 6.10) Hemoglobin 16.6 15.4 g/dl (14.0-18.0 g/dl (14.0-18. ) 0) Hematocrit 48.0 44.7 % (42.0-52.0) % (42.0-52.0) Mean 88.6 88.0 Corpuscular fl (82.0-101.0) fl (82.0-101.0 Volume ) Mean 30.6 30.3 Corpuscular pg (29.0-33.0) pg (29.0-33.0) Hemoglobin Mean 34.6 34.5 Corpuscular g/dl (32.0-37.0 g/dl (32.0-37. Hemoglobin Conc ) 0) ent Red Cell 12.2 12.2 Distribution % (11.5-14.5) % (11.5-14.5) Width Platelet Count 270 258 10^3/UL (140-41 10^3/UL (140-4 5) 15) Mean Platelet 10.5 10.5 Volume fl (7.4-10.4) fl (7.4-10.4) Immature 0.200 0.300 Granulocytes % % (0.001-0.429) % (0.001-0.429 ) Neutrophils % 57.7 59.9 % (39.0-77.0) % (39.0-77.0) Lymphocytes % 33.8 30.0 % (15.0-51.0) % (15.0-51.0) Monocytes % 6.5 7.2 % (0.0-11.0) % (0.0-11.0) Eosinophils % 1.3 % (0.0-7.0) 2.0 % (0.0-7.0) Basophils % 0.5 % (0.0-2.0) 0.6 % (0.0-2.0) Nucleated Red 0.0 0.0 Blood Cells % /100WBC (0.0-0. /100WBC (0.0-0 0) .0) Immature 0.020 0.020 Granulocytes # 10^3/ul (0.0-0. 10^3/ul (0.0-0 031) .031) Neutrophils # 5.0 3.8 10^3/ul (1.6-7. 10^3/ul (1.6-7 5) .5) Lymphocytes # 2.9 1.9 10^3/ul (0.8-2. 10^3/ul (0.8-2 9) .9) Monocytes # 0.6 0.5 10^3/ul (0.3-0. 10^3/ul (0.3-0 9) .9) Eosinophils # 0.1 0.1 10^3/ul (0.0-0. 10^3/ul (0.0-0 5) .5) Basophils # 0.0 0.0 10^3/ul (0.0-0. 10^3/ul (0.0-0 1) .1) Nucleated Red 0.0 0.0 Blood Cells # 10^3/ul (0.0-0. 10^3/ul (0.0-0 0) .0) Sodium Level 144 145 mmol/L (135-144 mmol/L (135-14 ) 4) Potassium 4.3 3.7 Level mmol/L (3.5-5.1 mmol/L (3.5-5. ) 1) Chloride Level 106 108 mmol/L (97-110) mmol/L (97-110 ) Carbon Dioxide 27 27 Level mmol/L (21-31) mmol/L (21-31) Anion Gap 11 (5-13) 10 (5-13) Blood Urea 19 mg/dl (7-20) 18 Nitrogen mg/dl (7-20) Creatinine 1.31 1.19 mg/dl (0.61-1.2 mg/dl (0.61-1. 4) 24) Est Glomerular 59 mL/min (>60) > 60 Filtrat mL/min (>60) Rate mL/min Glucose Level 95 125 mg/dl (70-220) mg/dl (70-220) Calcium Level 10.0 9.4 mg/dl (8.4-10.2 mg/dl (8.4-10. ) 2) Troponin I < 0.012 < 0.012 < 0.012 ng/ml (0.000-0. ng/ml (0.000-0 ng/ml (0.000-0 120) .120) .120) B-Type 19 Natriuretic PG/ML (0-125) Peptide Creatine 104 88 Kinase IU/L (23-200) IU/L (23-200) Creatine Kinase 1.3 1.0 Index Creatinine 1.34 0.90 Kinase MB ng/ml (0.0-2.4 ng/ml (0.0-2.4 (Mass) ) ) Hemoglobin A1c 5.4 % (0-5.9) Magnesium 2.0 Level mg/dl (1.7-2.5 ) Total 0.8 Bilirubin mg/dl (0.2-1.3 ) Direct 0.00 Bilirubin mg/dl (0.00-0. 20) Indirect 0.8 Bilirubin mg/dl (0-1.1) Aspartate Amino 23 Transf (AST/SGO IU/L (15-46) T) Alanine 24 Aminotransferas IU/L (13-69) e (ALT/SGPT) Alkaline 64 Phosphatase IU/L (42-121) Total Protein 7.1 g/dl (6.1-8.1) Albumin 4.2 g/dl (3.3-4.9) Globulin 2.90 g/dl (1.3-3.2) Albumin/Globuli 1.44 n Ratio Triglycerides 72 Level mg/dl (0-149) Cholesterol 132 Level mg/dl (100-200 ) LDL 89 mg/dl Cholesterol, Calculated HDL 29 Cholesterol mg/dl (27-67) Cholesterol/HDL 4.5 RATIO Ratio Thyroid 2.280 Stimulating MIU/L (0.465-4 Hormone (TSH) .680) TIFFANY FARRELL MD Jan 05, 2019 14:03
--- NOTE | 2019-01-06 10:31 | RADRPT ---
Echocardiogram Report [id number] : 1975 (43y 11m)Study Date: 01/05/2019 10:22:22 AM Gender: Dmitricession #: [id number] Tech: Kamaljit Cortés [facility] Location: 609-A Ref.Physician: BETSY JACOBS Height(Cm): BSA: Weight(Kg): Quality: AdequateOrder Physician: BETSY JACOBS Account #: Procedures: Echocardiographic Report: Transthoracic echocardiogram with complete 2D, M-Mode, and doppler examination. Indications: Chest Pain. Measurements: 2D/M Mode Doppler Measurement Value Normal Range Measurement Value Normal Range LVIDd 2D 4.6 [ 4.2 - 5.8 ] cm AV Peak Lee 1.3 [ 100.0 - 170.0 ] cm/sec LVIDs 2D 3.0 [ 2.5 - 4.0 ] cm AV Peak PG 7.0 [ 2.0 - 9.0 ] mmHg LVPWd 2D 1.1 [ 0.6 - 1.0 ] cm LVOT Peak Lee 0.9 [ 70.0 - 110.0 ] cm/sec IVSd 2D 1.2 [ 0.6 - 1.0 ] cm LVOT Peak PG 3.0 [ 2.0 - 6.0 ] mmHg AoR Diam 2D 3.0 [ 2.6 - 3.4 ] cm MV E Peak Lee 0.8 [ 60.0 - 130.0 ] cm/sec EDV 2D 97.8 [ 62.0 - 150.0 ] ml MV A Peak Lee 0.6 [ 100.0 - 120.0 ] cm/sec ESV 2D 33.9 [ 21.0 - 61.0 ] ml MV E/A 1.2 [ 0.8 - 1.5 ] ratio EF 2D 65.3 [ 52.0 - 72.0 ] percent MV Decel Time 169 [ 104 - 258 ] msec LA Dimen 2D 3.8 [ 3.0 - 4.0 ] cm Lat E` Lee 0.2 [ 10.0 - 15.0 ] cm/sec Lateral E/E` 4.5 [ 1.0 - 2.0 ] ratio Med E` Lee 0.1 cm/sec MV E/A 1.2 [ 0.8 - 1.5 ] ratio TR Peak Lee 2.1 [ 100.0 - 280.0 ] cm/sec TR Peak PG 17.0 mmHg RVSP 20.0 [ 10.0 - 36.0 ] mmHg Findings: Left Ventricle: Normal left ventricular systolic function. Normal left ventricular cavity size. Normal left ventricular wall thickness. Ejection fraction is visually estimated at 60 %. Tissue Doppler/Mitral Doppler indices are within normal limits. Right Ventricle: Normal right ventricular size. Normal right ventricular systolic function. Left Atrium: The left atrium is normal in size. Right Atrium: The right atrium is normal in size. Mitral Valve: Mild mitral leaflet calcification. Mild mitral annular calcification. Trace mitral regurgitation. Aortic Valve: Normal appearance of the aortic valve. No significant aortic stenosis or insufficiency. Tricuspid Valve: Normal appearance of the tricuspid valve. The estimated Peak RVSP is 20 mmHg. There is trace tricuspid regurgitation. Pericardium: Normal pericardium with no significant pericardial effusion. Aorta: Normal aortic root. IVC: Normal size and normal respiratory collapse consistent with normal right atrial pressure. Conclusions: Normal left ventricular systolic function. Normal left ventricular cavity size. Normal left ventricular wall thickness. Ejection fraction is visually estimated at 60 %. Tissue Doppler/Mitral Doppler indices are within normal limits. No significant valvular stenosis or regurgitation seen. The estimated Peak RVSP is 20 mmHg. Normal size and normal respiratory collapse consistent with normal right atrial pressure. Electronically Signed By: Jack Membreno 2019-01-06 10:31:04 PDT
== END 2019-01-05 15:53 | disposition home or self-care (01) | DRG 313 ==
LOC: E/R 19:32 → 6WM 01-05 00:51
PROVIDERS: ADMIT Internal Medicine; ATTEND Internal Medicine
DX: R07.89 Other chest pain (principal); N17.9 Acute kidney failure, unspecified; I10 Essential (primary) hypertension; E78.5 Hyperlipidemia, unspecified; R00.1 Bradycardia, unspecified; E86.0 Dehydration; Z87.891 Personal history of nicotine dependence
CPT/HCPCS: 36415; 71045; 75574; 80048; 80053; 80061; 82550; 82553; 83036; 83735; 83880; 84443; 84484; 85025; 93005; 93306; J1644; J7030; Q9967

== ENCOUNTER 2019-01-27 00:12 | Emergency (ER) | payer SELFPAY ==
[~2019-01-27] VITALS: Ht 170.2 cm; Wt 75.0 kg
[~2019-01-27 00:12] MED LIST changes: +MECL12.574 PO
[2019-01-27 00:15] VITALS: Ht 170.2 cm; Wt 75.0 kg
[2019-01-27] MEDS ORDERED: IBUPROFEN 600 MG TAB PO ONE (02:00)
[2019-01-27 03:11] VITALS: BP 134/80; PULSE 63; RESP 18
--- NOTE | 2019-01-27 05:34 | ERD ---
ER Documentation Chief Complaint Chief Complaint HIGH BP AND NOE AT HOME TODAY. HPI This patient is a 44-year-old male with past medical history of hypertension presenting to the emergency department complaining of intermittent vertigo type symptoms for the past 1 month. He also checked his blood pressure at home today and noticed a systolic reading of 154 which she believed was high. He currently denies any headache, chest pain, shortness of breath, hematuria, visual changes, or other symptoms at this time. He takes lisinopril 2.5 mg daily. Symptoms are overall mild. He denies any other complaints at this time. ROS All systems reviewed and are negative except as per history of present illness. Medications Home Meds Active Scripts Meclizine Hcl* (Antivert*) 12.5 Mg Tab, 12.5 MG PO Q6H PRN for DIZZINESS, #20 TAB Prov:BETSY STUART PA-C 01/27/19 Reported Medications Fenofibrate Nanocrystallized* (Tricor*) 145 Mg Tablet, 145 MG PO QAM, TAB 10/25/18 Lisinopril* (Lisinopril*) 2.5 Mg Tablet, 2.5 MG PO QPM, #30 TAB 10/25/18 Allergies Allergies: Coded Allergies: No Known Allergy (Unverified , 01/05/19) PMhx/Soc Medical and Surgical Hx: pt denies Surgical Hx History of Surgery: No Anesthesia Reaction: No Hx Neurological Disorder: No Hx Respiratory Disorders: No Hx Cardiac Disorders: No (HTN , and high cholesterol; pt unable to recall dates ) Hx Psychiatric Problems: No Hx Miscellaneous Medical Probl: No Hx Alcohol Use: No Hx Substance Use: No Hx Tobacco Use: No FmHx Family History: No diabetes Physical Exam Vitals Vital Signs Date Temp Pulse Resp B/P (MAP) Pulse Ox O2 O2 Flow FiO2 Time Delivery Rate 01/27/19 97.8 63 18 134/80 98 Room Air 03:11 (98) 01/27/19 96.8 83 12 139/85 100 00:15 (103) Physical Exam Const: No acute distress Head: Atraumatic Eyes: Normal Conjunctiva ENT: Normal External Ears, Nose and Mouth. Neck: Full range of motion. No meningismus. Resp: Clear to auscultation bilaterally Cardio: Regular rate and rhythm, no murmurs Abd: Soft, non tender, non distended. Normal bowel sounds Skin: No petechiae or rashes Back: No midline or flank tenderness Ext: No cyanosis, or edema Neur: Awake and alert. No neurological deficits. Psych: Normal Mood and Affect Results 24 hrs Current Medications Medications Dose Sig/Nato Start Time Status Last (Trade) Ordered Route PRN Stop Time Admin Dose Reason Admin Ibuprofen 600 mg ONCE ONCE 01/27/19 DC 01/27/19 (Motrin) PO 02:00 01/27/19 01:57 02:01 [place] [address] Radiology Main Line: [phone] DIAGNOSTIC IMAGING REPORT Patient: SUKHJINDER DONOVAN : 1975 Age: 44 Sex: M MR #: [id number] DOS: 01/27/19 0000 Ordering MD: BETSY STUART PA-C Location: [facility] Room/Bed: PROCEDURE: CT Brain without IV contrast. CLINICAL INDICATION: Dizziness. Headache.. TECHNIQUE: A CT of the brain was performed on a multislice detector CT scanner utilizing axial sections from the skull base through the vertex without contrast. Images were reviewed on a high-resolution PACS workstation. Exam CTDlvol = 39 mGy-cm and DLP = 699 mGy-cm. One of the following 3 dose reduction techniques were used: Automated exposure control; adjustment of the mA and/or kV according to patient size; or use of iterative reconstruction technique. DICOM images are available. COMPARISON: None available FINDINGS: There is encephalomalacia in the anterior inferior lateral right frontal lobe. There is otherwise age appropriate central and peripheral atrophy. There is no midline shift. There is no definite acute stroke. There is no mass lesion. There is no intracranial hemorrhage or abnormal extra-axial fluid collection. Visualized paranasal sinuses are clear. IMPRESSION: 1. No acute intracranial abnormality. 2. Right frontal lobe encephalomalacia. RPTAT: HMVK .Rickey Damico MD, MD Date Time Electronically viewed and signed by .Rickey Damico MD, on 01/27/2019 02:32 .K/ CC: BETSY STUART PA-C [id number] Procedures/MDM 44-year-old male presenting to the emergency department complaining of high blood pressure and vertigo type no neurological deficits noted. Blood pressure is 134/80. Patient has no evidence to suggest hypertensive emergency or urgency. I doubt CVA, TIA, intracranial hemorrhage, or other emergent process. CT of the head showed no acute abnormalities and the full report interpreted by the radiologist may be viewed above. Patient was otherwise stable for discharge and further outpatient management with prescription for meclizine. Patient advised to return immediately for any new, worsening, or concerning symptoms per the patient was in agreement with the diagnosis, plan, need for follow-up, return precautions. Patient's blood pressure was elevated (>120/80) but appears stable without evidence of hypertension emergency or urgency. The patient is to follow-up and pursue outpatient monitoring and therapy with their primary care physician within 1 week and return immediately if they have any new, worsening, or concerning symptoms. Departure Diagnosis: Primary Impression: Dizziness Condition: Fair Patient Instructions: Dizziness (Vertigo) and Balance Problems: Ensuring Your Safety Referrals: [facility] Usted se noe hecho un examen mdico de control que le indica que no est en smith condicin que requiera tratamiento urgente en el Departamento de Emergencia. Un estudio ms profundo y el tratamiento de hutchison condicin pueden esperar sin ningn riesgo hasta que usted sea atendida/o en el consultorio de hutchison mdico o smith clnica. Es responsabilidad suya arreglar smith yecenia para el seguimiento del chelsea. MANEJO DE CONDICIONES NO URGENTES EN EL FUTURO 1) Si usted tiene un mdico de atencin primaria: Usted debera llamar a hutchison mdico de atencin primaria antes de venir al departamento de emergencia. Despus de las horas de consultorio, hutchison doctor o hutchison asociado/a est disponible por telfono. El mdico o enfermero de fernando en el servicio telefnico puede asesorarle por rodney medio para atender el problema, o chelsea contrario se puede programar smith yecenia. 2) Si usted no tiene un mdico de atencin primaria: Llame al mdico o clnica de referencia que aparece abajo ashleigh las horas de consultorio para hacer smith yecenia para que le vean. CLINICAS: [place] [address] [phone] [facility] [phone] [address] [facility] [phone] [address] [place] [address] [phone] [place] [id number] [phone] [facility]. [phone] [address] Additional Instructions: Llame al doctor MAANA y danielle smith YECENIA PARA DENTRO DE 1-2 BARILLAS.Dgale a la secretaria que nosotros le instruimos hacer esta yecenia.Avise o llame si hutchison condicin se empeora antes de la yecenia. Regresa aqui si peor o no mejor. BETSY STUART PA-C Jan 27, 2019 05:34
== END 2019-01-27 03:10 | disposition home or self-care (01) ==
LOC: FTE 00:12
DX: R42 Dizziness and giddiness (principal); I10 Essential (primary) hypertension
CPT/HCPCS: 70450